=== PATIENT | male | born 1990 | race Caucasian/White ===

== ENCOUNTER → 2021-02-07 09:31 | Outpatient (CLI) | payer BC, SELFPAY ==
[2021-02-07 12:31] LABS: Anion Gap 7 (5-15); BUN 19 mg/dL (7-18); BUN/Creat Ratio 21.1 RATIO (10-20); Calcium,Total 9.1 mg/dL (8.5-10.1); Chloride 104 mmol/L (98-107); Cholesterol 175 mg/dL (200); EST Glomerular Filtration Rate 106 mL/min (>60); Est Glom Filt Rate - Afr Amer 129 mL/min (>60); Glucose 91 mg/dL (74-106); High Density Lipoprotein 39 mg/dL; Potassium 4.1 mmol/L (3.5-5.1); Sodium Level 134 mmol/L (136-145); Triglycerides 142 mg/dL; Very Low Density Lipoprotein 28 mg/dL (5-40)
== END ==
PROVIDERS: PCP Family Medicine; Referring Provider Family Medicine; Visit Provider Family Medicine
DX: Z13.1 Encounter for screening for diabetes mellitus (principal); Z13.220 Encounter for screening for lipoid disorders
CPT/HCPCS: 36415; 80048; 80061

== ENCOUNTER 2022-08-28 13:34 | Emergency (ER) | payer OTHER, BC, SELFPAY ==
[2022-08-28 13:35] VITALS: BP 123/99; PULSE 96; RESP 16; TEMP 36.6; O2SAT 96; BMI 33.5
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
[2022-08-28] MEDS: Amox/Clavulanate 875 MG Tablet PO (14:51)
== END 2022-08-28 15:03 | disposition home or self-care (01) ==
PROVIDERS: Emergency Provider Student in an Organized Health Care Education/Training Program; PCP Family Medicine; Visit Provider Student in an Organized Health Care Education/Training Program
DX: S00.511A Abrasion of lip, initial encounter (principal); S51.851A Open bite of right forearm, initial encounter; S00.93XA Contusion of unspecified part of head, initial encounter; S40.021A Contusion of right upper arm, initial encounter; Y04.8XXA Assault by other bodily force, initial encounter; Y99.0 Civilian activity done for income or pay
CPT/HCPCS: 99283

== ENCOUNTER → 2024-01-21 | Outpatient (CLI) | payer OTHER, SELFPAY ==
[2024-01-21 18:02] LABS: Absolute Lymphocyte Count 1.35 X10^3/uL (0.83-4.51); Absolute Neutrophil Count 5.6 X10^3/uL (2.0-7.7); Basophil# 0.02 X10^3/uL; Basophil% 0.3 % (0-1); Eosinophil# 0.08 X10^3/uL; Hematocrit 43.6 % (40-54); Hemoglobin 13.9 g/dL (13.0-16.5); Lymphocyte # 1.35 X10^3/ul (0.83-4.51); Lymphocyte % 17.7 % (19-41); Mean Corp Hgb Conc 31.9 g/dL (32-36); Mean Corpuscular Hgb 29.1 pg (27.0-32.0); Mean Corpuscular Volume 91.2 fL (80-94); Mean Platelet Vol. 9.4 fl (6.2-12.0); Monocyte# 0.58 X10^3/uL; Monocyte% 7.6 % (0-10); NRBC Flagged by Analyzer 0 % (0-5); Neutrophil # 5.57 X10^3/uL (2.7-7.7); Neutrophil % 73.1 % (47-70); Platelet Count 298 K/mm3 (150-450); RBC Distribution Width CV 12.6 % (11.6-14.6); RBC Distribution Width SD 42.2 fl (35.1-43.9); Red Blood Count 4.78 M/mm3 (4.6-6.2); White Blood Count 7.6 K/mm3 (4.4-11.0)
[2024-01-21 18:10] LABS: ALB/GLOB Ratio 0.8 RATIO (0.9-2.4); AST(SGOT) 30 U/L (15-37); Alanine Aminotransfer ALT/SGPT 127 U/L (16-61); Albumin, Serum 3.5 g/dL (3.2-5.0); Alkaline Phosphatase 123 U/L (45-117); Amylase 47 U/L (25-115); Anion Gap 5 (5-15); BUN 12 mg/dL (7-18); BUN/Creat Ratio 11.4 RATIO (10-20); Calcium,Total 9.2 mg/dL (8.5-10.1); Chloride 105 mmol/L (98-107); Creatinine, Serum 1.05 mg/dL (0.70-1.30); EST Glomerular Filtration Rate 87 mL/min (>60); Est Glom Filt Rate - Afr Amer 106 mL/min (>60); Globulin 4.4 g/dL (2.2-4.2); Glucose 97 mg/dL (74-106); Lipase 33 U/L (13-75); Potassium 3.8 mmol/L (3.5-5.1); Protein, Total 7.9 g/dL (6.4-8.2); Sodium Level 138 mmol/L (136-145)
== END | disposition home or self-care (01) ==
LOC: MFPLAB 16:29
PROVIDERS: PCP Family Medicine; Visit Provider Family Medicine
DX: R10.9 Unspecified abdominal pain (principal)
CPT/HCPCS: 36415; 80053; 82150; 83690; 85025

== ENCOUNTER → 2024-01-26 | Outpatient (CLI) | payer OTHER, SELFPAY ==
--- NOTE | 2024-01-26 08:38 | US_ITS ---
STUDY: ABDOMINAL ULTRASOUND - RIGHT UPPER QUADRANT REASON FOR VISIT: Male, 33 years old RUQ u/s -- EPIGASTRIC PAIN RADIATING TO RIGHT SHOULDER TECHNIQUE: Ultrasound evaluation of the right upper quadrant was performed with real-time and static rojas-scale imaging. TECHNICAL QUALITY: Adequate. COMPARISON: None. FINDINGS: Liver: The liver measures 17.1 cm. There is increased echogenicity consistent with fatty infiltration. The bile ducts are within normal limits. There is hepatic color flow. The direction of portal flow is hepatopetal. There is no demonstrated mass lesion. Gallbladder: Normal distended gallbladder. The gallbladder wall is mildly thickened and measures 3.2 mm. There is a positive sonographic Lynch''s sign. There is no pericholecystic fluid. There are multiple echogenic structures within the gallbladder, consistent with multiple gallstones. Common Bile Duct (C.B.D.): The common bile duct measures 4.2 mm. Pancreas: Normal size of the head, body and tail of the pancreas. There is normal echogenicity of the pancreas. There is no demonstrated pancreatic mass or cyst. Right Kidney: Normal size of the right kidney. The right kidney measures 11.4 cm x 6 cm x 6 cm. Normal renal cortex. The right cortex measures 1.8 cm. There is no demonstrated renal mass or cyst. There is no right hydronephrosis. US/Abdomen Limited IMPRESSION: Multiple gallstones. Mildly thickened gallbladder wall. Positive sonographic Lynch''s sign. Fatty infiltration of liver. Electronically Signed: Esteban Majano MD at 16:01 EDT ,
== END | disposition home or self-care (01) ==
LOC: US 08:33
PROVIDERS: PCP Family Medicine; Referring Provider Family Medicine; Visit Provider Family Medicine
DX: R10.9 Unspecified abdominal pain (principal)
CPT/HCPCS: 76705

== ENCOUNTER 2024-02-09 23:01 | Emergency (ER) | payer OTHER, SELFPAY ==
[2024-02-09 23:02] VITALS: BP 138/85; PULSE 63; RESP 16; TEMP 37.1; O2SAT 99; BMI 31.6
[2024-02-09 23:22] LABS: Absolute Lymphocyte Count 5.31 X10^3/uL (0.83-4.51); Absolute Neutrophil Count 5.7 X10^3/uL (2.0-7.7); Basophil# 0.03 X10^3/uL; Basophil% 0.2 % (0-1); Eosinophil# 0.28 X10^3/uL; Eosinophils% 2.3 % (0-5); Hematocrit 44.6 % (40-54); Hemoglobin 14.6 g/dL (13.0-16.5); Lymphocyte # 5.31 X10^3/ul (0.83-4.51); Lymphocyte % 43.5 % (19-41); Mean Corp Hgb Conc 32.7 g/dL (32-36); Mean Corpuscular Hgb 29.1 pg (27.0-32.0); Mean Corpuscular Volume 88.8 fL (80-94); Mean Platelet Vol. 8.8 fl (6.2-12.0); Monocyte# 0.88 X10^3/uL; Monocyte% 7.2 % (0-10); NRBC Flagged by Analyzer 0 % (0-5); Neutrophil # 5.67 X10^3/uL (2.7-7.7); Neutrophil % 46.6 % (47-70); POSITIVE DIFFERENTIAL YES; POSITIVE MORPHOLOGY YES; Platelet Count 322 K/mm3 (150-450); RBC Distribution Width CV 12.8 % (11.6-14.6); RBC Distribution Width SD 41.5 fl (35.1-43.9); Red Blood Count 5.02 M/mm3 (4.6-6.2); White Blood Count 12.2 K/mm3 (4.4-11.0)
[2024-02-09 23:27] LABS: Differential Indicated SCAN CRITERIA MET
[2024-02-09 23:45] LABS: ALB/GLOB Ratio 0.9 RATIO (0.9-2.4); AST(SGOT) 23 U/L (15-37); Alanine Aminotransfer ALT/SGPT 33 U/L (16-61); Albumin, Serum 3.7 g/dL (3.2-5.0); Alkaline Phosphatase 116 U/L (45-117); Anion Gap 7 (5-15); BUN 11 mg/dL (7-18); BUN/Creat Ratio 9.9 RATIO (10-20); Calcium,Total 9.1 mg/dL (8.5-10.1); Chloride 104 mmol/L (98-107); Creatinine, Serum 1.11 mg/dL (0.70-1.30); EST Glomerular Filtration Rate 82 mL/min (>60); Est Glom Filt Rate - Afr Amer 99 mL/min (>60); Estimated Creatinine Clearance 117.64 ml/min; Globulin 3.9 g/dL (2.2-4.2); Glucose 139 mg/dL (74-106); Potassium 3.5 mmol/L (3.5-5.1); Protein, Total 7.6 g/dL (6.4-8.2); Sodium Level 140 mmol/L (136-145)
[2024-02-10 00:03] LABS: Differential Comment SCANNED; Reactive Lymphocyte 3+
[2024-02-10 00:24] LABS: Lipase 39 U/L (13-75)
[2024-02-10] MEDS: 0.9% Normal Saline (1000mL) 1,000 ML 999 ML IV (00:25)
[2024-02-10] MEDS: HYDROmorphone 1 MG/ML Syringe IV (00:25)
[2024-02-10] MEDS: Ondansetron 4 MG/2 ML Vial IV (00:25)
--- NOTE | 2024-02-10 01:00 | EX.ED.DYSGE1 ---
HPI History of Present Illness Chief Complaint: Abd Pain Informant: patient and family Narrative Narrative: Patient is a 33-year-old male with past medical history of anxiety and recent diagnosis of cholelithiasis. He is scheduled to have a laparoscopic cholecystectomy in 2 days. He states his evening he ate a large amount of [employer] and then a little while later began with pain in the upper abdomen that felt similar nature to his previous bouts of a gallbladder attack. He states that he was concerned as he is scheduled for surgery and now is having increased pain that he may need to have surgery sooner and therefore comes in for evaluation. [facility] Medical History Impacted cerumen of both ears Anxiety Home Medications ?Medication ?Instructions ?Recorded ?Last Taken ?Type dextroamphetamine-amphetamine 20 20 mg PO DAILY 02/06/24 Unknown History mg tablet (Adderall) trazodone 100 mg tablet 100 mg PO QHS 02/09/24 Unknown History ondansetron 4 mg disintegrating 4 mg PO TID PRN nausea and 02/10/24 Unknown Rx tablet vomiting #21 tabs oxycodone-acetaminophen 5 mg-325 1 tab PO Q6H PRN pain 3 days #12 02/10/24 Unknown Rx mg tablet (Percocet) tabs Allergy/AdvReac Type Severity Reaction Status Date / Time No Known Allergies Allergy Verified 02/09/24 23:04 Social History (Updated 02/06/24 @ 13:38 by Randi Wilson LPN) Smoking Status: Never smoker alcohol intake: current substance use type: does not use ROS ROS ED Constitutional Constitutional ED: Denies chills or fever(s) ENT ENT ED: Denies sore throat Cardiovascular Cardiovascular: Denies chest pain Respiratory/Chest Respiratory/Chest: Denies cough or dyspnea Gastrointestinal Gastrointestinal: Reports abdominal pain and nausea; Denies diarrhea or vomiting Genitourinary Genitourinary ED: Denies dysuria or hematuria Musculoskeletal Musculoskeletal: Denies myalgias Integumentary Denies rash Neurologic Neurologic: Denies headache(s) Psychiatric Psychiatric: Reports anxiety Hematologic/Lymphatic Hematologic/Lymphatic: Denies easy bleeding or easy bruising EXAM Physical Exam Const Vital Signs: 02/09/24 23:02 02/10/24 01:02 02/10/24 01:10 Temperature 98.7 F 98.7 F Temperature Source Oral Pulse Rate 63 67 64 Respiratory Rate 16 18 18 Blood Pressure 138/85 H 123/77 H 123/77 H Blood Pressure Mean 102 92 92 Pulse Ox 99 100 100 Oxygen Delivery Method Room Air Room Air Positive well nourished, well developed and obese General Appearance ED: well developed; Negative for pallor Nutritional Appearance: obese HEENT Reports moist mucous membranes Eyes PERRL and EOMs intact bilaterally General Eye ED: Negative for scleral icterus Neck supple Resp normal respiratory effort and clear to auscultation bilaterally Cardio regular rate and regular rhythm Rate: other Other Details: Radial and carotid pulses are equal and symmetric GI non-distended and no masses GI Narrative: Abdomen is soft and nondistended with normal active bowel sounds. There is pain on palpation in the right upper quadrant and midepigastric region but greatest in the midepigastric region. No voluntary guarding or rigidity. No pulsatile mass or fluid wave. Negative Lynch sign. Auscultation: normoactive bowel sounds Palpation: soft Back/Spine no CVA tenderness Extremity normal to inspection Neuro oriented x3, CN's II-XII intact bilaterally and no sensory deficits noted Sensorium / Orientation: alert Motor Exam: strength 5/5 throughout Psych mental status grossly normal Skin no rashes or lesions noted General Skin Exam: Negative for jaundice or pallor MDM MDM MDM Narrative Medical decision making narrative: Patient arrived to the ER slightly hypertensive but otherwise with stable vitals. He has known gallbladder disease based on previous ultrasound. Moreover he ate food that would stimulate a gallbladder spasm which would account for his symptoms this evening. However as he does have the majority of his pain in the midepigastric region there is concern that he is now progressed to gallstone pancreatitis. There is also potential for acute cholecystitis. Therefore basic laboratory studies were ordered. Patient's white count is slightly elevated at 12.2 which is most likely stress response as he is afebrile and does not have a left shift I do not feel there is true infection. His lipase is also normal going against gallstone pancreatitis and his liver enzymes are actually improved from the previous testing on January 20 which would go against development of acute cholecystitis. After patient received IV hydration and IV pain medication he had resolution of his symptoms and his abdomen remains soft and nonsurgical. Therefore at this time as vitals are stable pain has resolved workup is negative I do not feel there is need for emergent surgical consultation and he can contact his surgeon as an outpatient basis prior to his scheduled event for History & Record Review Discussion w/independent historian: Patient and Family Lab Data Attestation: I reviewed the patient's lab results. Labs: Laboratory Results - last 24 hr 02/09/24 02/09/24 23:15 23:17 WBC 12.2 H RBC 5.02 Hgb 14.6 Hct 44.6 MCV 88.8 MCH 29.1 MCHC 32.7 RDW Std Deviation 41.5 RDW Coeff of Yoly 12.8 Plt Count 322 MPV 8.8 Immature Gran % (Auto) 0.200 Neut % (Auto) 46.6 L Lymph % (Auto) 43.5 H [place] % (Auto) 7.2 Eos % (Auto) 2.3 Baso % (Auto) 0.2 Absolute Neuts (auto) 5.7 Absolute Lymphs (auto) 5.31 H Nucleated RBC % 0 Differential Comment SCANNED Reactive Lymphocytes 3+ Sodium 140 Potassium 3.5 Chloride 104 Carbon Dioxide 29.0 Anion Gap 7 BUN 11 Creatinine 1.11 Estim Creat Clear Calc 117.64 Est GFR (MDRD) Af Amer 99 Est GFR (MDRD) Non-Af 82 BUN/Creatinine Ratio 9.9 L Glucose 139 H Calcium 9.1 Total Bilirubin 0.30 AST 23 ALT 33 Alkaline Phosphatase 116 Total Protein 7.6 Albumin 3.7 Globulin 3.9 Albumin/Globulin Ratio 0.9 Lipase 39 Discharge Plan Triage Chief Complaint: Abd Pain Other Complaint: Nausea/Vomiting ED Provider: Byron Morrison Dx/Rx/DC Orders Clinical Impression: Cholelithiasis, Biliary colic, Anxiety Instructions: ED Gallstones with Biliary Colic Prescriptions: New ondansetron 4 mg tablet,disintegrating 4 mg PO TID PRN (Reason: nausea and vomiting) Qty: 21 0RF oxycodone-acetaminophen [Percocet] 5-325 mg tablet 1 tab PO Q6H PRN (Reason: pain) 3 Days Qty: 12 0RF No Action dextroamphetamine-amphetamine [Adderall] 20 mg tablet 20 mg PO DAILY trazodone 100 mg tablet 100 mg PO QHS Primary Care Provider: Wilberto Watts Referrals: Lamine Davis MD [Med Staff - Active Staff] - Wilberto Watts MD [Primary Care Provider] - Activity Restrictions/Additional Instructions: Please eat a bland diet of smaller more frequent meals for the next few days to prevent any further recurrence of a gallbladder flareup. Notify your surgeon of the event that occurred this evening and see if they want to move your surgery up by the day. Return to the ER should you have any further concerns Print Language: Montenegrin Disposition Disposition: Home, Self Care Discharge Date/Time: 02/10/24 01:13
[2024-02-10 01:02] VITALS: BP 123/77; PULSE 67; RESP 18; O2SAT 100
[2024-02-10 01:10] VITALS: BP 123/77; PULSE 64; RESP 18; TEMP 37.1; O2SAT 100
== END 2024-02-10 01:13 | disposition home or self-care (01) ==
PROVIDERS: Emergency Provider Emergency Medicine; PCP Family Medicine; Visit Provider Emergency Medicine
DX: K80.70 Calculus of gallbladder and bile duct without cholecystitis without obstruction (principal); F41.9 Anxiety disorder, unspecified; Z79.899 Other long term (current) drug therapy
CPT/HCPCS: 80053; 83690; 85025; 99283; J7030; A4216; J2405

== ENCOUNTER 2024-02-11 01:10 | Inpatient (IN) | payer OTHER, SELFPAY ==
[2024-02-11] VITALS (15 sets, daily range): BP systolic 105–132; BP diastolic 59–81; PULSE 59–88; RESP 14–20; TEMP 36.5–37.5; O2SAT 93–100; BMI 31.3; BMI 31.1
--- NOTE | 2024-02-11 01:21 | ED.VIS.GI ---
HPI HPI - GI History of Present Illness Chief Complaint: Abd Pain Informant: patient and parent Abdominal Pain/Flank Pain Onset: Days Context: Gradual Onset Timing: Continuous Quality: Aching Location: Diffuse and Epigastric Current Severity: Mild Maximum Severity: Mild Worsened by: Nothing Relieved by: Nothing Nausea/Vomiting/Emesis GI Symptom: Positive for Nausea and Vomiting Severity: Mild Diarrhea/Melena/Hematochezia GI Symptom: Negative for Diarrhea, Melena or Hematochezia Associated Symptoms Associated Symptoms: Negative for Dysuria, Frequency or Hematuria Narrative Narrative: 33-year-old male diagnosed with gallstones and having a cholecystectomy done by Dr. Peterson Davis on . Patient states he has recurrent pain. Denies fever. He had 1 episode of nausea and vomiting. He did take a Percocet about half hour prior to arrival. He has never had any other abdominal surgery. Denies any diarrhea, melena or dysuria. Prior similar symptoms: Yes Recent Illness/Hospitalization: No PFSH PFSH Medical History Alcohol use History of steroid therapy Fatty liver Back pain Non-smoker Impacted cerumen of both ears Anxiety Home Medications ?Medication ?Instructions ?Recorded ?Last Taken ?Type dextroamphetamine-amphetamine 20 20 mg PO DAILY 02/06/24 Unknown History mg tablet (Adderall) trazodone 100 mg tablet 100 mg PO QHS 02/09/24 Unknown History ondansetron 4 mg disintegrating 4 mg PO TID PRN nausea and 02/10/24 Unknown Rx tablet vomiting #21 tabs oxycodone-acetaminophen 5 mg-325 1 tab PO Q6H PRN pain 3 days #12 02/10/24 Unknown Rx mg tablet (Percocet) tabs Allergy/AdvReac Type Severity Reaction Status Date / Time No Known Allergies Allergy Verified 02/11/24 01:10 Surgical History Hx of wisdom tooth extraction Social History Smoking Status: Never smoker alcohol intake: current substance use type: does not use ROS ROS ED ROS Narrative Abdominal pain. Nausea and vomiting. Constitutional Constitutional ED: Denies chills or fever(s) ENT ENT ED: Denies ear pain Cardiovascular Cardiovascular: Denies chest pain Respiratory/Chest Respiratory/Chest: Denies cough or dyspnea Gastrointestinal Gastrointestinal: Reports abdominal pain, nausea and vomiting Genitourinary Genitourinary ED: Denies dysuria or hematuria Musculoskeletal Musculoskeletal: Denies arthralgias Integumentary Denies abscess Neurologic Neurologic: Denies headache(s) Endocrine Endocrinology: Denies polydipsia Hematologic/Lymphatic Hematologic/Lymphatic: Denies easy bleeding Allergic/Immunologic Allergic/Immunologic ED: Denies mouth swelling or tongue swelling EXAM Physical Exam Narrative Exam Narrative: Well-appearing 33-year-old male. Vital signs stable afebrile. Family at bedside. He does not look septic toxic or in distress. H EENT exam unremarkable. Moist remembrance. Neck nontender. Lungs clear to auscultation bilaterally. Heart regular rhythm rate about 65 no murmur. Chest wall ribs nontender. Abdomen soft nondistended normal bowel sounds without peritoneal signs. Diffusely tender more so in epigastric region. No specific Lynch sign. No McBurney's point tenderness. No hernia or mass. No obstruction. Back nontender. Moving all 4 extremities. Nontender no edema. He is awake and alert. Const Vital Signs: 02/11/24 01:11 02/11/24 02:19 02/11/24 03:09 Temperature 98.2 F 98.9 F Temperature Source Temporal Pulse Rate 66 78 88 Respiratory Rate 18 16 16 Blood Pressure 124/70 H 119/73 110/70 Blood Pressure Mean 88 88 83 Pulse Ox 94 98 100 Oxygen Delivery Method Room Air Room Air Positive well nourished and well developed; Negative for cachectic, contractures or unkempt General Appearance ED: well developed and NAD; Negative for unkempt, cachectic, contractures or pallor Nutritional Appearance: Negative for cachectic HEENT Reports moist mucous membranes normocephalic and atraumatic; Negative for trauma or tenderness Eyes PERRL and EOMs intact bilaterally General Eye ED: Negative for pale conjunctiva or scleral icterus Neck no lymphadenopathy, supple and no JVD General: Negative for tenderness Carotids: Negative for other Lymph Lymphatic: Negative for other Resp normal respiratory effort and clear to auscultation bilaterally Effort and Inspection: Negative for respiratory distress Auscultation: Negative for rales, rhonchi, wheezes or diminished lung sounds Cardio regular rate, regular rhythm, S1 normal heart sound, S2 normal heart sound and no murmurs Rate: Negative for bradycardia or tachycardic Rhythm: Negative for abnormal rhythm GI non-distended and no masses; Negative for non-tender Inspection: Negative for abdominal distention Auscultation: normoactive bowel sounds Palpation: soft and tender; Negative for guarding, rigid, hepatomegaly, splenomegaly, hernia, mass or pulsatile mass Back/Spine no CVA tenderness General Back: Negative for CVA tenderness Cervical Spine: Negative for cervical spine tenderness Thoracic Spine / Upper Back: Negative for thoracic spinal tenderness Lumbar Spine / Lower Back: Negative for lumbar spinal tenderness Coccyx: Negative for other Extremity full ROM General Extremety ED: Negative for edema or tenderness General Extremity: Negative for edema Neuro CN's II-XII intact bilaterally and moves all extremities Sensorium / Orientation: oriented to person, oriented to place and oriented to time; Negative for orientation impaired, confused, lethargic or stuporous Motor Exam: strength 5/5 throughout Psych mental status grossly normal and thought process normal Appearance: Negative for unkempt Attitude: No agitated Mood & Affect: Negative for depressed Skin no wounds General Skin Exam: Negative for jaundice or pallor Lesions: no lesions Rashes: no rashes Trauma: Negative for abrasion Nails: Negative for discolored MDM MDM MDM Narrative Medical decision making narrative: 33-year-old male with a plan abdominal pain with a history of gallstones. He took a Percocet prior to arrival. He was offered but did not want a thing for pain or nausea currently. He was instructed that if he needs something just ask. Screening labs to be obtained. He had an ultrasound done about 2+ weeks ago. It did show gallstones. I do not think he needs imaging currently unless his labs are significantly off. He is scheduled to have his gallbladder out on less than 36 hours from now. Patient doing well at 3 AM pain is much better after the IV pain medication. He is resting comfortably. I spoke to general surgery on-call Dr. Arias, we discussed the case. She requested the patient be admitted to the hospitalist. I have spoken with the hospitalist who admit the patient. But he did want me to obtain a CT abdomen and pelvis for him. He will consult GI for possible ERCP as needed. History & Record Review Discussion w/independent historian: Patient and Family Additional record(s) reviewed:: Prior inpatient record, Prior outpatient record, Prior ED visit and Prior labs Lab Data Attestation: I reviewed the patient's lab results. Lab results narrative: CBC normal. White count 8.6. H&H 14 and 44. Platelets 291. Chemistries unremarkable gap 7. Normal BUN and creatinine. Glucose 116. Liver enzymes are elevated with a total bilirubin 2.2. AST of 285, ALT 576 and alk phos of 152. Lipase is greater than 5000 consistent with gallstone pancreatitis. Labs: Laboratory Results - last 24 hr 02/11/24 01:20 WBC 8.6 RBC 4.99 Hgb 14.6 Hct 44.9 MCV 90.0 MCH 29.3 MCHC 32.5 RDW Std Deviation 42.8 RDW Coeff of Yoly 13.1 Plt Count 291 MPV 9.2 Immature Gran % (Auto) 0.200 Neut % (Auto) 65.0 Lymph % (Auto) 25.2 [place] % (Auto) 7.3 Eos % (Auto) 2.0 Baso % (Auto) 0.3 Absolute Neuts (auto) 5.6 Absolute Lymphs (auto) 2.17 Nucleated RBC % 0 Sodium 142 Potassium 4.1 Chloride 108 H Carbon Dioxide 27.0 Anion Gap 7 BUN 7 Creatinine 1.14 Estim Creat Clear Calc 114.07 Est GFR (MDRD) Af Amer 96 Est GFR (MDRD) Non-Af 79 BUN/Creatinine Ratio 6.1 L Glucose 116 H Calcium 8.8 Total Bilirubin 2.20 H AST 285 H ALT 576 H Alkaline Phosphatase 152 H Total Protein 7.1 Albumin 3.5 Globulin 3.6 Albumin/Globulin Ratio 1.0 Lipase > 5000 H Discharge Plan Triage Chief Complaint: Abd Pain ED Provider: Alexander Toro Dx/Rx/DC Orders Clinical Impression: Gallstones, Biliary colic, Abdominal pain, Acute gallstone pancreatitis Primary Care Provider: Wilberto Watts Disposition Disposition: Acute Care [facility]
[2024-02-11 01:38] LABS: Absolute Lymphocyte Count 2.17 X10^3/uL (0.83-4.51); Absolute Neutrophil Count 5.6 X10^3/uL (2.0-7.7); Basophil# 0.03 X10^3/uL; Basophil% 0.3 % (0-1); Eosinophil# 0.17 X10^3/uL; Hematocrit 44.9 % (40-54); Hemoglobin 14.6 g/dL (13.0-16.5); Lymphocyte # 2.17 X10^3/ul (0.83-4.51); Lymphocyte % 25.2 % (19-41); Mean Corp Hgb Conc 32.5 g/dL (32-36); Mean Corpuscular Hgb 29.3 pg (27.0-32.0); Mean Platelet Vol. 9.2 fl (6.2-12.0); Monocyte# 0.63 X10^3/uL; Monocyte% 7.3 % (0-10); NRBC Flagged by Analyzer 0 % (0-5); Neutrophil # 5.58 X10^3/uL (2.7-7.7); Platelet Count 291 K/mm3 (150-450); RBC Distribution Width CV 13.1 % (11.6-14.6); RBC Distribution Width SD 42.8 fl (35.1-43.9); Red Blood Count 4.99 M/mm3 (4.6-6.2); White Blood Count 8.6 K/mm3 (4.4-11.0)
[2024-02-11] MEDS: Ondansetron 4 MG/2 ML Vial IV ×2 (02:17→18:03)
[2024-02-11] MEDS: Ketorolac 30 MG/ML Syringe IV (02:17)
[2024-02-11] MEDS: morphine 8 MG/ML Syringe 6 MG IV (02:17)
[2024-02-11 02:35] LABS: AST(SGOT) 285 U/L (15-37); Alanine Aminotransfer ALT/SGPT 576 U/L (16-61); Albumin, Serum 3.5 g/dL (3.2-5.0); Alkaline Phosphatase 152 U/L (45-117); Anion Gap 7 (5-15); BUN 7 mg/dL (7-18); BUN/Creat Ratio 6.1 RATIO (10-20); Calcium,Total 8.8 mg/dL (8.5-10.1); Chloride 108 mmol/L (98-107); Creatinine, Serum 1.14 mg/dL (0.70-1.30); EST Glomerular Filtration Rate 79 mL/min (>60); Est Glom Filt Rate - Afr Amer 96 mL/min (>60); Estimated Creatinine Clearance 114.07 ml/min; Globulin 3.6 g/dL (2.2-4.2); Glucose 116 mg/dL (74-106); Lipase > 5000 U/L (13-75); Potassium 4.1 mmol/L (3.5-5.1); Protein, Total 7.1 g/dL (6.4-8.2); Sodium Level 142 mmol/L (136-145)
--- NOTE | 2024-02-11 04:17 | HP.PCM.HOS_ITS ---
[facility] - General General Date of Admission: 02/11/24 Date of Service: 02/11/24 Chief Complaint: Abdominal Pain with Nausea and Vomiting. HPI Narrative FADY HAWLEY, is a 33 M with a past medical history of recently diagnosed acute cholecystitis with multiple gallstones on recent ultrasound followed by Dr. Davis with plans made for laparoscopic cholecystectomy that was to be done on February 12, 2024 who presents to [facility] ER complaining of abdominal pain. Mr. Hawley reports his acute symptoms began approximately 1-2 days prior to admission with the gradual-onset of progressively worsening abdominal pain that was aching, diffuse and epigastric, mild and was not made better or worse by anything. He also admits to associated nausea with one episode of bilious emesis. He did take a Percocet about one half hour prior to arrival but when his symptoms were not controlled he decided to come in for further evaluation and treatment. He denies associated fever, chills, diarrhea, constipation, chest pain or SOB. In the ER he was noted to have laboratory evidence of hyperbilirubinemia of 2.2 mg/dL, with AST 285 U/L, ALT 576 U/L and Alkaline Phosphatase of 152 U/L present on admission complicated by acute gallstone pancreatitis confirmed by elevated serum lipase of >5K U/L with the general surgeon on-call recommending to the ER physician that this patient be admitted to the hospitalist service so consultation with Dr. Garcia of gastroenterology can be obtained for ERCP in the AM prior to consulting them for impending laparoscopic cholecystectomy. He was then admitted to the general medical floor for ongoing care for a stay that that is expected to extend beyond 2 midnights. [facility] Medical History Alcohol use History of steroid therapy Fatty liver Back pain Non-smoker Impacted cerumen of both ears Anxiety Home Medications ?Medication ?Instructions ?Recorded ?Last Taken ?Type dextroamphetamine-amphetamine 20 20 mg PO DAILY 02/06/24 Unknown History mg tablet (Adderall) trazodone 100 mg tablet 100 mg PO QHS 02/09/24 Unknown History ondansetron 4 mg disintegrating 4 mg PO TID PRN nausea and 02/10/24 Unknown Rx tablet vomiting #21 tabs oxycodone-acetaminophen 5 mg-325 1 tab PO Q6H PRN pain 3 days #12 02/10/24 Unknown Rx mg tablet (Percocet) tabs Allergy/AdvReac Type Severity Reaction Status Date / Time No Known Allergies Allergy Verified 02/11/24 01:10 Surgical History Hx of wisdom tooth extraction Social History Smoking Status: Never smoker alcohol intake: current substance use type: does not use ROS ROS Narrative Review of Systems: Constitutional: Patient denies fever or chills. Eyes: Patient denies changes in vision or discharge from eyes. ENT: Patient denies runny nose, sore throat or ear pain. CV: Patient denies chest pain, palpitations or heart racing. Resp: Patient denies SOB or cough. GI: Patient admits to abdominal pain and nausea with one episode of bilious emesis. He denies diarrhea or constipation. : Patient denies dysuria, hematuria or urinary hesitancy. MSK: Patient denies arthralgias and myalgias. Skin: Patient denies rash, abscess or jaundice. Psych: Patient denies symptoms of uncontrolled depression or anxiety. Neuro: Patient denies headache, paresthesias or focal neurologic deficits. Hematology: Patient denies easy bleeding or easy bruisability. Endocrinology: Patient denies polyuria, polydipsia or polyphagia. 14 point ROS otherwise negative except for positives noted above. Vital Signs Vital Signs Vital Signs: 02/11/24 01:11 02/11/24 02:19 02/11/24 03:09 Temperature 98.2 F 98.9 F Temperature Source Temporal Pulse Rate 66 78 88 Respiratory Rate 18 16 16 Blood Pressure 124/70 H 119/73 110/70 Blood Pressure Mean 88 88 83 Pulse Ox 94 98 100 Oxygen Delivery Method Room Air Room Air Weight Weight: 224 lb 6.889 oz Body Mass Index (BMI) 31.3 Physical Exam Const alert, oriented x3, no apparent distress and average body habitus General Appearance: cooperative HEENT normocephalic, head/scalp atraumatic, hearing grossly normal bilaterally and moist oral mucous membranes Eyes PERRL and EOMs intact bilaterally Neck no lymphadenopathy and supple Resp normal respiratory effort, no retractions, no use of accessory muscles and clear to auscultation bilaterally Cardio regular rate and regular rhythm GI normal to inspection, nondistended, normoactive bowel sounds, soft to palpation and non-distended GI Narrative: Positive TTP in epigastrium. Extremity normal to inspection, full ROM and no clubbing, cyanosis or edema Skin Skin Narrative: Patient has no evidence of rash or abscess. Neuro oriented x3, CN's II-XII intact bilaterally, moves all extremities and no focal motor deficits Sensorium / Orientation: awake, alert, oriented to person, oriented to place and oriented to time Speech: speech normal Psych affect normal Results Medical Records Data Attestation: I reviewed the patient's medical records Lab / Micro Data Attestation: I reviewed the patient's lab results. 02/11/24 01:20 02/11/24 01:20 Labs: Laboratory Results - last 24 hr 02/11/24 01:20: WBC 8.6, RBC 4.99, Hgb 14.6, Hct 44.9, MCV 90.0, MCH 29.3, MCHC 32.5, RDW Std Deviation 42.8, RDW Coeff of Yoly 13.1, Plt Count 291, MPV 9.2, Immature Gran % (Auto) 0.200, Neut % (Auto) 65.0, Lymph % (Auto) 25.2, [place] % (Auto) 7.3, Eos % (Auto) 2.0, Baso % (Auto) 0.3, Absolute Neuts (auto) 5.6, Absolute Lymphs (auto) 2.17, Nucleated RBC % 0, Sodium 142, Potassium 4.1, C hloride 108 H, Carbon Dioxide 27.0, Anion Gap 7, BUN 7, Creatinine 1.14, Estim Creat Clear Calc 114.07, Est GFR (MDRD) Af Amer 96, Est GFR (MDRD) Non-Af 79, B UN/Creatinine Ratio 6.1 L, Glucose 116 H, Calcium 8.8, Total Bilirubin 2.20 H, A ST 285 H, ALT 576 H, Alkaline Phosphatase 152 H, Total Protein 7.1, Albumin 3.5, Globulin 3.6, Albumin/Globulin Ratio 1.0, Lipase > 5000 H Imaging [facility] Imaging Services [address], [place] [id number] Abdomen/Pelvis W IV Cont ONLY MR#: [id number] Acct: [id number] Name: FADY HAWLEY Rep #: [id number] : 1990 M 33 From: Bhavesh Barillas MD PCP: Dr. Wilberto Watts MD Status: ADM IN Study: Abdomen/Pelvis W IV Cont ONLY Date of Exam: 02/11/24 Exam# [id number] Ordering Dr: Alexander Toro MD STUDY: CT ABDOMEN AND PELVIS WITH CONTRAST - URINARY TRACT REASON FOR EXAM: Male, 33 years old. gallstome pancreatitis RADIATION DOSAGE (If Supplied By Facility): CTDIvol = ( 17.63 ) mGy, DLP = ( 1180.63 ) mGycm TECHNIQUE: IV 100mL Isovue-300 was administered. Transaxial images were obtained from the dome of the diaphragm to the symphysis pubis in the arterial, nephrographic and excretory phases. Multiplanar coronal and sagittal images were reformatted. The protocol utilizes one or more of the following dose reduction techniques: automated exposure control, adjustment of mA and/or kV according to patient size,and/or use of iterative reconstruction technique. COMPARISON: FINDINGS: The visualized lung bases are unremarkable. The visualized portions of the heart are within normal limits. Normal liver. There are multiple gallstones. Normal spleen. There is diffuse enlargement of the pancreas with fito-pancreatic edema consistent with acute pancreatitis. Normal bilateral adrenal glands. Normal visualized stomach. Normal small intestine. Normal colon. The appendix is visualized and appears normal. Normal abdominal aorta. No retroperitoneal adenopathy. Normal right kidney. Normal left kidney. Normal urinary bladder. Normal abdominal wall. Normal osseous structures. CT/Abdomen/Pelvis W IV Cont ONLY IMPRESSION: There is diffuse enlargement of the pancreas with fito-pancreatic edema consistent with acute pancreatitis. Cholelithiasis. Electronically Signed: Bhavesh Barillas MD at 4:51 EDT , CC: Dr. Wilberto Watts MD; Dr. Alexander oTro MD ~ Head Mechanic: Signed Assessment & Plan Assessment/Plan (1) Acute gallstone pancreatitis: (2) Acute cholecystitis due to biliary calculus: (3) Abdominal pain: QUALIFIERS: Abdominal location: epigastric Qualified Code(s): R 10.13 - Epigastric pain (4) Nausea and vomiting: QUALIFIERS: Vomiting type: unspecified Qualified Code(s): R11.2 - Nausea with vomiting, unspecified (5) Anxiety: PLAN: Plan 1. Acute Gallstone Pancreatitis with known gallstones on recent GB US and serum lipase of >5K - Admit to general medical floor. Start empiric IV Zosyn until ERCP can be done and gallbladder can be removed. Give IV Morphine prn for severe (level 6-10/10) pain. Give IV Zofran prn for nausea and vomiting. Finally, we will consult Dr. Garcia of gastroenterology to see this patient on- rounds in the AM for further recommendations regarding ERCP with help appreciated in advance. 2. Cholelithiasis with Biliary Colic and laboratory evidence of hyperbilirubinemia of 2.2 mg/dL, with AST 285 U/L, ALT 576 U/L and Alkaline Phosphatase of 152 U/L present on admission complicating #1 - General surgery to see this patient on-rounds in the AM for further recommendations regarding previously scheduled semi-elective cholecystectomy with help appreciated in advance. Check CMP daily to follow trend. 3. History of Anxiety - Stable. 4. DVT prophylaxis - SCD's only with impending ERCP and laparoscopic cholecystectomy. Total time: Approximately 55 minutes. Charges/Coding Visit Charges Inpatient E&M: 58040 Init Hosp L2
[2024-02-11 06:06] LABS: Phosphorus 3.7 mg/dL (2.5-4.9)
[2024-02-11] MEDS: Piperacil/Tazobactam 3.375 GM in 0.9% Normal Saline (50mL MB+) 50 ML IV ×3 (06:16→22:19)
[2024-02-11] MEDS: 0.9% Normal Saline (1000mL) 1,000 ML 125 ML IV ×2 (06:16→13:13)
[2024-02-11] MEDS: Morphine 2 MG/ML Syringe IV ×2 (07:31→12:02)
[2024-02-11] MEDS: 0.9% Saline Lock 10 ML Syringe IV ×4 (07:37→18:04)
[2024-02-11] MEDS: Ketorolac 15 MG/ML Vial IV ×2 (08:41→18:03)
--- NOTE | 2024-02-11 09:11 | CON.PCM.SX_ITS ---
Assessment & Plan Assessment/Plan (1) Acute cholecystitis due to biliary calculus: (2) Acute gallstone pancreatitis: PLAN: Plan I have been consulted in conjunction with Dr. Ohara who is covering for Dr. Davis. She will independently evaluate this patient. Patient is now presenting with acute gallstone pancreatitis. Dr. Garcia has been consulted and will perform an ERCP with possible stent placement today. Dr. Davis will plan to perform a laparoscopic cholecystectomy with intraoperative cholangiograms tomorrow. Procedure details, risks and benefits have been reviewed. Will recheck patient's labs in the morning especially his lipase. Patient and his mother have had the opportunity to ask and have questions answered. Patient verbally understands and agrees with the plan. Plan for NPO after midnight. Patient is on Zosyn and will remain on Zosyn for the surgery. Thank you for allowing us to participate in this patient's care. HPI Consult Data Date of Consult: 02/11/24 HPI Narrative Reason for Consultation: Gallstone pancreatitis HPI Narrative: FADY HAWLEY, is a 33 M who presents with worsening right upper quadrant pain, nausea, vomiting. Patient was evaluated last Friday in the office with Dr. Davis in regards to removal of his gallbladder. Patient was scheduled in the office for cholecystectomy this with Dr. Davis. Patient states he went to the ED on 02/08 after eating a large amount of [employer] and developing abdominal pain. Patient states he was provided anti-nausea medicine and then pain medication from the ED and was discharged to home. He had contacted our office on Friday and updated our office about his ED trip. He was recommended to go to clear liquids until . Patient notes last night the pain intensified and he presented to the ED. Patient was found to have epigastric pain and left upper quadrant pain as well. Patient's blood work is remarkable for elevated liver enzymes and elevated lipase level. CT scan of the ab/pel demonstrated diffuse enlargement of the pancreas with per-pancreatic edema consistent with acute pancreatitis. Cholelithiasis. Patient's previous history per Dr. Davis: Patient is a 33-year-old male here with gallstones. Patient was seen in his PCPs office and an ultrasound was ordered which showed thickened gallbladder wall with multiple gallstones. The patient reports that since then his pain has resolved and he has been very careful about his diet and currently is pain-free. PFSH Medical History Alcohol use History of steroid therapy Fatty liver Back pain Non-smoker Impacted cerumen of both ears Anxiety Home Medications ?Medication ?Instructions ?Recorded ?Last Taken ?Type dextroamphetamine-amphetamine 20 20 mg PO DAILY 02/06/24 Unknown History mg tablet (Adderall) trazodone 100 mg tablet 100 mg PO QHS 02/09/24 Unknown History ondansetron 4 mg disintegrating 4 mg PO TID PRN nausea and 02/10/24 Unknown Rx tablet vomiting #21 tabs oxycodone-acetaminophen 5 mg-325 1 tab PO Q6H PRN pain 3 days #12 02/10/24 Unknown Rx mg tablet (Percocet) tabs Allergy/AdvReac Type Severity Reaction Status Date / Time No Known Allergies Allergy Verified 02/11/24 01:10 Surgical History Hx of wisdom tooth extraction Social History Smoking Status: Never smoker alcohol intake: current substance use type: does not use ROS Constitutional Constitutional: Reports systems reviewed and no addt'l complaints, except as documented Eyes Eyes: Reports systems reviewed and no addt'l complaints, except as documented ENT HEENT: Reports systems reviewed and no addt'l complaints, except as documented Cardiovascular Cardiovascular: Reports systems reviewed and no addt'l complaints, except as documented Respiratory/Chest Respiratory/Chest: Reports systems reviewed and no addt'l complaints, except as documented Gastrointestinal Gastrointestinal: Reports systems reviewed and no addt'l complaints, except as documented Genitourinary Genitourinary: Reports systems reviewed and no addt'l complaints, except as documented Musculoskeletal Musculoskeletal: Reports systems reviewed and no addt'l complaints, except as documented Integumentary Integumentary: Reports systems reviewed and no addt'l complaints, except as documented Neurologic Neurologic: Reports systems reviewed and no addt'l complaints, except as documented Psychiatric Psychiatric: Reports systems reviewed and no addt'l complaints, except as documented Endocrine Endocrinology: Reports systems reviewed and no addt'l complaints, except as documented Hematologic/Lymphatic Hematologic/Lymphatic: Reports systems reviewed and no addt'l complaints, except as documented Allergic/Immunologic Allergic/Immunologic: Reports systems reviewed and no addt'l complaints, except as documented Physical Exam Const alert, oriented x3 and no apparent distress HEENT normocephalic and head/scalp atraumatic Eyes PERRL Neck full ROM Lymph Lymphatic: no lymphadenopathy noted Resp normal respiratory effort and clear to auscultation bilaterally Cardio regular rate and regular rhythm GI GI Narrative: Abdomen- soft, tenderness LUQ, epigastric and RUQ with guarding. Hypoactive bowel sounds. no CVA tenderness Back/Spine no CVA tenderness Extremity normal to inspection Skin no rashes or lesions noted Neuro no focal motor deficits and no sensory deficits noted Psych mental status grossly normal Lab / Micro Data 02/11/24 01:20 02/11/24 01:20 Labs: Laboratory Results - last 24 hr 02/11/24 01:20: WBC 8.6, RBC 4.99, Hgb 14.6, Hct 44.9, MCV 90.0, MCH 29.3, MCHC 32.5, RDW Std Deviation 42.8, RDW Coeff of Yoly 13.1, Plt Count 291, MPV 9.2, Immature Gran % (Auto) 0.200, Neut % (Auto) 65.0, Lymph % (Auto) 25.2, [place] % (Auto) 7.3, Eos % (Auto) 2.0, Baso % (Auto) 0.3, Absolute Neuts (auto) 5.6, Absolute Lymphs (auto) 2.17, Nucleated RBC % 0, Sodium 142, Potassium 4.1, C hloride 108 H, Carbon Dioxide 27.0, Anion Gap 7, BUN 7, Creatinine 1.14, Estim Creat Clear Calc 114.07, Est GFR (MDRD) Af Amer 96, Est GFR (MDRD) Non-Af 79, B UN/Creatinine Ratio 6.1 L, Glucose 116 H, Calcium 8.8, Phosphorus 3.7, Magnesium 2.0, Total Bilirubin 2.20 H, AST 285 H, ALT 576 H, Alkaline Phosphatase 152 H, Total Protein 7.1, Albumin 3.5, Globulin 3.6, Albumin/Globulin Ratio 1.0, Lipase > 5000 H, TSH 1.190 Imaging Radiology Impression Abdomen/Pelvis CT 02/11/24 04:19 IMPRESSION: There is diffuse enlargement of the pancreas with fito-pancreatic edema consistent with acute pancreatitis. Cholelithiasis. Electronically Signed: Bhavesh Barillas MD at 4:51 EDT , Charges/Coding Visit Charges Office Visits / Consults: [id number] IP Consult L3
--- NOTE | 2024-02-11 09:37 | CASEMGMT ---
SERGIO WADE Assessment: Face to Face with pt for initial transition planning/care coordination assessment. SERGIO WADE introduced self and role at [facility], pt voices understanding and consents to assessment. Pt is A&O x4 and answers all questions appropriately at this time. Pt lying in bed in no distress with mother at bedside. Pt agreeable to assessment with mother present. Care providers, pharmacy, and demographics verified/updated. Admitting Dx: acute cholecystitis with gallstone pancreatitis Strata Score: 1 PCP:Stefanie Specialists:SRINATH Davis; Geremias Pennington at [facility], psychiatrist Preferred Pharmacy: [facility] Insurance: [facility] Prescription Benefit: yes LNOK: Mary Jane Dasilva, mother Living Arrangements: Pt lives with mother in a 2 story home with 15 steps to enter with a rail. Pt states he lives in the upstairs and his neighbor lives in the downstairs. Pt reports he is I in ADLs and denies concerns at home. Transportation: Pt drives self and denies concerns with transportation. DME:Denies HHC/SNF: Denies Pt states no concerns with going home at time of dc. Pt states no further concerns/needs. CM to follow. Advised pt to ask CM if any further question/concerns/needs arise, voices understanding. Pt Goal: Home Plan: Home, will stay with his mother for a couple days post dc. Blair HILL CM
[2024-02-11] MEDS: Pantoprazole Sodium 40 MG in 0.9% Normal Saline (100mL MB+) 100 ML 330 MG IV (10:54)
--- NOTE | 2024-02-11 14:48 | EKG12_ITS ---
Test Reason : preop Blood Pressure : / mmHG Vent. Rate : 070 BPM Atrial Rate : 070 BPM P-R Int : 180 ms QRS Dur : 098 ms QT Int : 378 ms P-R-T Axes : -08 010 011 degrees QTc Int : 408 ms Normal sinus rhythm Incomplete right bundle branch block Borderline ECG No previous ECGs available Confirmed by Tigre Aguayo ([id number]), food editor ESTEE WELLS ([id number]) on 02/13/2024 6:38:19 AM Referred By: Dorothy Confirmed By:Tigre Aguyao
--- NOTE | 2024-02-11 15:14 | PCM.PRE.AN2 ---
ASA Classification* ASA Classification ASA Classification: 2 Assessment & Plan Anesthesia* Anesthesia Assessment Anesthesia Assessment: Discussed sedation and/or anesthesia options, risks, benefits, and alternatives with patient/parents/legal guardian/POA. Questions invited. The patient/parents/legal guardian/POA seems to understand and agrees to proceed with anesthesia plan. Reviewed the physical assessment, medical history, allergy history and patient home medications list prior to surgery/procedure/anesthetic and documented any changes. Performed airway and anesthesia risk assessments. Anesthesia Type Anesthesia Type: General History Source History Obtained from:: Patient and Chart Anesthesia Focused Assessment* Temperature: 98.1 F Pulse Rate: 64 Blood Pressure: 111/71 Respiratory Rate: 16 Pulse Ox: 97 Oxygen Delivery Method: Room Air Airway Assessment Mouth opens: >3 cm Mallampati Score: III Teeth Condition: Intact Neck Range of motion (ROM): Full ROM Focused Labs Anesthesia Preop lab: CBC WBC 8.6 K/mm3 (4.4-11.0) 02/11/24 01:20 RBC 4.99 M/mm3 (4.6-6.2) 02/11/24 01:20 Hgb 14.6 g/dL (13.0-16.5) 02/11/24 01:20 Hct 44.9 % (40-54) 02/11/24 01:20 Plt Count 291 K/mm3 (150-450) 02/11/24 01:20 CHEMISTRY Potassium 4.1 mmol/L (3.5-5.1) 02/11/24 01:20 Sodium 142 mmol/L (136-145) 02/11/24 01:20 Magnesium 2.0 mg/dL (1.6-2.6) 02/11/24 01:20 Phosphorus 3.7 mg/dL (2.5-4.9) 02/11/24 01:20 BUN 7 mg/dL (7-18) 02/11/24 01:20 Creatinine 1.14 mg/dL (0.70-1.30) 02/11/24 01:20 Glucose 116 mg/dL (74-106) H 02/11/24 01:20 TSH 1.190 uIU/mL (0.358-3.740) 02/11/24 01:20 COAG Pre-Assessment Diagnosis/Proposed Procedure Planned Operative Procedure(s): Endoscopic endoscopic retrograde cholangiopancreatography Anesthesia History Anesthesia History - chicken vaccinator: Anesthesia History - chicken vaccinator Hx Hospitalization No 02/10/24 13:50 Any Problems With Anesthesia No 02/11/24 05:59 Cholinesterase deficiency No 02/11/24 05:59 You/Your Family Experience No 02/11/24 05:59 fever (hyperthermia) with Relationship Recent Exposure to Contagious No 02/11/24 05:59 Disease Does patient have nerve No 02/11/24 05:59 stimulator Patient instructed to have No 02/11/24 05:59 device shut off --Does patient have Pacemaker No 02/11/24 14:41 or ICD? When Was Last Pacemaker Check QUESTION #4 FULL TEXT: You/Your Family Experience fever (hyperthermia) with Anesthesia Last Oral Intake Last Oral intake: Last Oral Intake NPO since Meds taken in AM with sips of water? Meds patient instructed to take am of surgery Any additional information?: Yes NPO since: 01:00 PONV PONV - chicken vaccinator: PONV - chicken vaccinator Female HX of Motion Sickness HX of N/V After Surgery Non-Smoker Duration of Surgery greater than 60 minutes Number of Risk Factors PONV Score Height & Weight Height & Weight: Anesthesia: Height & Weight Height 5 ft 10.87 in 02/11/24 14:41 Weight: 101 kg 02/11/24 14:41 Body Mass Index (BMI) 31.1 02/11/24 14:41 Respiratory Assessment Respiratory Assessment - chicken vaccinator: Respiratory Tract Infection Hx - chicken vaccinator Hx Respiratory Tract Infection No 02/11/24 05:59 STOP Sleep Apnea STOP Sleep Apnea - chicken vaccinator: STOP Sleep Apnea - chicken vaccinator Hx Hypertension No 02/11/24 05:51 Hx Sleep Apnea No 02/11/24 05:51 CPAP BIPAP Do you snore loudly (louder No 02/11/24 05:51 than talking or can be heard Do you often feel tired/ No 02/11/24 05:51 fatigued/ sleepy during daytime? Has anyone observed you stop No 02/11/24 05:51 breathing during sleep? STOP Results Negative 02/11/24 05:51 QUESTION #5 FULL TEXT : Do you snore loudly (louder than talking or can be heard through closed doors)? Tobacco Use History Tobacco Use History - chicken vaccinator: Tobacco Use History - chicken vaccinator Tobacco Use Smoking Status Never smoker 02/11/24 05:51 Hx Tobacco Use No 02/11/24 05:51 Years Smoking Packs Smoked per Day Smoking Cessation Date was within the last 15 years Hx Smoking Cessation Date Hx Smoking Cessation Counseling Hematologic Medial History Hematologic Hx - chicken vaccinator: Hematologic Medical Hx - environmental health and safety manager Hx of Blood Transfusion No 02/11/24 05:51 Hx of Transfusion in last 3 No 02/11/24 05:51 Months Date of Last Transfusion (if within last 3 months) Ever experience any problems No 02/11/24 05:51 with transfusion(s)? Specify any problems Hx of Preganancy in last 3 N/A 02/11/24 05:51 Months Nurse Filling Out Transfusion CSIGNORIN 02/11/24 05:51 & Questions: Date: 02/11/24 02/11/24 05:51 Time: 05:52 02/11/24 05:51 Patient unable to answer at this time (ie. confused, unrespo /Reproduction History /Reproductive History - chicken vaccinator: /Reproductive Hx- chicken vaccinator Hx Now Gestational Age (in weeks): EDC: Hx Hx Para Hx Section SAB No 02/10/24 13:50 Active Medications Active Medications: Current Medications Generic Name Dose Route Start Last Admin Trade Name Freq PRN Reason Stop Dose Admin Pantoprazole Sodium 40 mg/ 110 mls @ 330 mls/hr 02/11/24 10:00 02/11/24 11:19 Sodium Chloride IV Infused Q24 LATOYA Infusion Piperacillin Sod/Tazobactam 50 mls @ 12.5 mls/hr 02/11/24 06:00 02/11/24 13:13 Sod 3.375 gm/ Sodium Chloride IV 12.5 mls/hr Q8 LATOYA Administration Sodium Chloride 1,000 mls @ 125 mls/hr 02/11/24 04:56 02/11/24 13:13 IV 125 mls/hr .Q8H LATOYA Administration Sodium Chloride 250 mls @ 15 mls/hr 02/11/24 05:38 IV .[id number] PRN Additional IVPB Infusion Ketorolac Tromethamine 15 mg 02/11/24 05:37 02/11/24 08:41 Ketorolac 15 Mg/Ml Vial IV 02/16/24 05:37 15 mg Q6H PRN PRN Administration Pain 1-5/10 or Fever Morphine Sulfate 2 mg 02/11/24 05:37 02/11/24 12:02 Morphine 2 Mg/Ml Syringe IV 2 mg Q4H PRN PRN Administration Pain Score 6-10 Ondansetron HCl 4 mg 02/11/24 05:37 Ondansetron 4 Mg/2 Ml Vial IV Q8H PRN PRN NAUSEA/VOMITING Sodium Chloride 10 - 40 ml 02/11/24 05:38 02/11/24 12:01 0.9% Saline Lock 10 Ml Syringe IV 10 ml UD PRN Administration [facility] Medical History Alcohol use History of steroid therapy Fatty liver Back pain Non-smoker Impacted cerumen of both ears Anxiety Home Medications ?Medication ?Instructions ?Recorded ?Last Taken ?Type dextroamphetamine-amphetamine 20 20 mg PO DAILY 02/06/24 Unknown History mg tablet (Adderall) trazodone 100 mg tablet 100 mg PO QHS 02/09/24 Unknown History ondansetron 4 mg disintegrating 4 mg PO TID PRN nausea and 02/10/24 Unknown Rx tablet vomiting #21 tabs oxycodone-acetaminophen 5 mg-325 1 tab PO Q6H PRN pain 3 days #12 02/10/24 Unknown Rx mg tablet (Percocet) tabs Allergy/AdvReac Type Severity Reaction Status Date / Time No Known Allergies Allergy Verified 02/11/24 01:10 Surgical History Hx of wisdom tooth extraction Social History Smoking Status: Never smoker alcohol intake: current substance use type: does not use Review of Systems (Anesthesia) ROS Narrative System reviewed and no additional complaints, except as documented.
--- NOTE | 2024-02-11 16:00 | RAD_ITS ---
Fluoroscopic guided ERCP INDICATION: Pancreatitis TECHNIQUE: ERCP was performed in the anterior projection by the attending toby maker. FINDINGS: 10 fluoroscopic guided images were obtained in the axial projection during the exam to document findings during the study. For more complete information recommend correlation with toby maker notes. RAD/ERCP Biliary/Pancreas IMPRESSION: Fluoroscopic guided ERCP Electronically Signed: Venkatesh Calvillo MD at 18:20 EDT ,
--- NOTE | 2024-02-11 16:08 | EX.PCM.CON.G ---
HPI Consult Data Date of Consult: 02/11/24 HPI Narrative Reason for Consultation: Gallstone pancreatitis HPI Narrative: FADY HAWLEY, is a 33 M with a past medical history of recently diagnosed acute cholecystitis with multiple gallstones on recent ultrasound followed by Dr. Davis with plans made for laparoscopic cholecystectomy that was to be done on February 12, 2024 who presented to [facility] ER complaining of abdominal pain. Mr. Hawley reports his acute symptoms began approximately 1-2 days prior to admission with the gradual-onset of progressively worsening abdominal pain that was aching, diffuse and epigastric, mild and was not made better or worse by anything. He also admits to associated nausea with one episode of bilious emesis. He did take a Percocet about one half hour prior to arrival but when his symptoms were not controlled he decided to come in for further evaluation and treatment. He denies associated fever, chills, diarrhea, constipation, chest pain or SOB. In the ER he was noted to have laboratory evidence of hyperbilirubinemia of 2.2 mg/dL, with AST 285 U/L, ALT 576 U/L and Alkaline Phosphatase of 152 U/L present on admission complicated by acute gallstone pancreatitis confirmed by elevated serum lipase of >5K U/L [facility] Medical History Alcohol use History of steroid therapy Fatty liver Back pain Non-smoker Impacted cerumen of both ears Anxiety Home Medications ?Medication ?Instructions ?Recorded ?Last Taken ?Type dextroamphetamine-amphetamine 20 20 mg PO DAILY 02/06/24 Unknown History mg tablet (Adderall) trazodone 100 mg tablet 100 mg PO QHS 02/09/24 Unknown History ondansetron 4 mg disintegrating 4 mg PO TID PRN nausea and 02/10/24 Unknown Rx tablet vomiting #21 tabs oxycodone-acetaminophen 5 mg-325 1 tab PO Q6H PRN pain 3 days #12 02/10/24 Unknown Rx mg tablet (Percocet) tabs Allergy/AdvReac Type Severity Reaction Status Date / Time No Known Allergies Allergy Verified 02/11/24 01:10 Surgical History Hx of wisdom tooth extraction Social History Smoking Status: Never smoker alcohol intake: current substance use type: does not use ROS ROS Narrative Review of Systems: Constitutional: Patient denies fever or chills. Eyes: Patient denies changes in vision or discharge from eyes. ENT: Patient denies runny nose, sore throat or ear pain. CV: Patient denies chest pain, palpitations or heart racing. Resp: Patient denies SOB or cough. GI: Patient admits to abdominal pain and nausea with one episode of bilious emesis. He denies diarrhea or constipation. : Patient denies dysuria, hematuria or urinary hesitancy. MSK: Patient denies arthralgias and myalgias. Skin: Patient denies rash, abscess or jaundice. Psych: Patient denies symptoms of uncontrolled depression or anxiety. Neuro: Patient denies headache, paresthesias or focal neurologic deficits. Hematology: Patient denies easy bleeding or easy bruisability. Endocrinology: Patient denies polyuria, polydipsia or polyphagia. 14 point ROS otherwise negative except for positives noted above. Physical Exam Const alert, oriented x3, no apparent distress and average body habitus General Appearance: cooperative HEENT normocephalic, head/scalp atraumatic, hearing grossly normal bilaterally and moist oral mucous membranes Eyes PERRL and EOMs intact bilaterally Neck no lymphadenopathy and supple Resp normal respiratory effort, no retractions, no use of accessory muscles and clear to auscultation bilaterally Cardio regular rate and regular rhythm GI normal to inspection, nondistended, normoactive bowel sounds, soft to palpation and non-distended GI Narrative: Positive TTP in epigastrium. Extremity normal to inspection, full ROM and no clubbing, cyanosis or edema Skin Skin Narrative: Patient has no evidence of rash or abscess. Neuro oriented x3, CN's II-XII intact bilaterally, moves all extremities and no focal motor deficits Sensorium / Orientation: awake, alert, oriented to person, oriented to place and oriented to time Speech: speech normal Psych affect normal Lab / Micro Data 02/11/24 01:20 02/11/24 01:20 Labs: Laboratory Results - last 24 hr 02/11/24 01:20: WBC 8.6, RBC 4.99, Hgb 14.6, Hct 44.9, MCV 90.0, MCH 29.3, MCHC 32.5, RDW Std Deviation 42.8, RDW Coeff of Yoly 13.1, Plt Count 291, MPV 9.2, Immature Gran % (Auto) 0.200, Neut % (Auto) 65.0, Lymph % (Auto) 25.2, [place] % (Auto) 7.3, Eos % (Auto) 2.0, Baso % (Auto) 0.3, Absolute Neuts (auto) 5.6, Absolute Lymphs (auto) 2.17, Nucleated RBC % 0, Sodium 142, Potassium 4.1, Chloride 108 H, Carbon Dioxide 27.0, Anion Gap 7, BUN 7, Creatinine 1.14, Estim Creat Clear Calc 114.07, Est GFR (MDRD) Af Amer 96, Est GFR (MDRD) Non-Af 79, BUN/Creatinine Ratio 6.1 L, Glucose 116 H, Calcium 8.8, Phosphorus 3.7, Magnesium 2.0, Total Bilirubin 2.20 H, AST 285 H, ALT 576 H, Alkaline Phosphatase 152 H, Total Protein 7.1, Albumin 3.5, Globulin 3.6, Albumin/Globulin Ratio 1.0, Lipase > 5000 H, TSH 1.190 Imaging Radiology Impression Abdomen/Pelvis CT 02/11/24 04:19 IMPRESSION: There is diffuse enlargement of the pancreas with fito-pancreatic edema consistent with acute pancreatitis. Cholelithiasis. Electronically Signed: Bhavesh Barillas MD at 4:51 EDT Reading Location ID and State: [facility] / [place] Tel , Service support , Assessment & Plan Assessment/Plan (1) Acute gallstone pancreatitis: (2) Acute cholecystitis due to biliary calculus: (3) Abdominal pain: QUALIFIERS: Abdominal location: epigastric Qualified Code(s): R10.13 - Epigastric pain (4) Nausea and vomiting: QUALIFIERS: Vomiting type: unspecified Qualified Code(s): R11.2 - Nausea with vomiting, unspecified (5) Anxiety: PLAN: Plan 1. Acute Gallstone Pancreatitis with known gallstones on recent GB US and serum lipase of >5K. Agree with empiric IV Zosyn until ERCP can be done and gallbladder can be removed. He will undergo ERCP with stone removal. He was explained alternatives, risk, benefits include not withstanding bleeding, infection, sepsis, perforation, need for emergent urgent . He will have an ASA of 3. 2. Cholelithiasis with Biliary Colic and laboratory evidence of hyperbilirubinemia of 2.2 mg/dL, with AST 285 U/L, ALT 576 U/L and Alkaline Phosphatase of 152 U/L present on admission complicating #1 - General surgery to see this patient on-rounds in the AM for further recommendations regarding previously scheduled semi-elective cholecystectomy with help appreciated in advance. Charges/Coding Visit Charges Inpatient E&M: 14985 Init Hosp L3
--- NOTE | 2024-02-11 17:07 | PCM.POST.ANE ---
Anesthesia: Postop Eval I Current Vital Signs Temperature: 98.2 F Pulse Rate: 79 Blood Pressure: 127/66 Respiratory Rate: 20 Pulse Ox: 94 Assessment Airway patent: Yes Spontaneous unlabored respirations: Yes nausea: No Vomiting: No Anesthesia Complication: No Fluid Hydration Crystalloid volume administer (ml): 800 Total IV fluid infused: 800 Progress Note Anesthesia document: Postop Eval 1 completed: Yes
--- NOTE | 2024-02-11 17:11 | OP.ERCP_ITS ---
Patient Name: Pratik Dasilva Procedure Date: 02/11/2024 4:12 PM Date of : 1990 Age: 33 Procedure: ERCP Indications: Bile duct stone(s), Jaundice, Elevated liver enzymes Providers: Akshat aGrcia DO Medicines: Monitored Anesthesia Care Patient Profile: This is a 33 year old male. Refer to note in patient chart for documentation of history and physical. Patient has symptoms of acute right upper quadrant abdominal pain and acute jaundice. This patient has no history of previous ERCP. This patient has no history of surgical alteration of the upper digestive tract anatomy. Complications: No immediate complications. Procedure: Pre-Anesthesia Assessment: - Prior to the procedure, a History and Physical was performed, and patient medications and allergies were reviewed. The patient is competent. The risks and benefits of the procedure and the sedation options and risks were discussed with the patient. All questions were answered and informed consent was obtained. Patient identification and proposed procedure were verified by the physician in the pre-procedure area. Mental Status Examination: alert and oriented. Airway Examination: normal oropharyngeal airway and neck mobility. Respiratory Examination: clear to auscultation. CV Examination: normal. Prophylactic Antibiotics: The patient does not require prophylactic antibiotics. Prior Anticoagulants: The patient has taken no anticoagulant or antiplatelet agents except for NSAID medication. ASA Grade Assessment: II - A patient with mild systemic disease. After reviewing the risks and benefits, the patient was deemed in satisfactory condition to undergo the procedure. The anesthesia plan was to use monitored anesthesia care (MAC). Immediately prior to administration of medications, the patient was re-assessed for adequacy to receive sedatives. The heart rate, respiratory rate, oxygen saturations, blood pressure, adequacy of pulmonary ventilation, and response to care were monitored throughout the procedure. The physical status of the patient was re-assessed after the procedure. After obtaining informed consent, the scope was passed under direct vision. Throughout the procedure, the patient's blood pressure, pulse, and oxygen saturations were monitored continuously. The Duodenoscope was introduced through the mouth, and advanced to the duodenum and used to inject contrast into the bile duct and ventral pancreatic duct. The ERCP was accomplished without difficulty. The patient tolerated the procedure well. Scope In: 4:23:35 PM Scope Out: 4:50:23 PM Total Procedure Duration Time 0 hours 26 minutes 48 seconds Findings: The coating operator film was normal. The esophagus was successfully intubated under direct vision. The scope was advanced to a normal major papilla in the descending duodenum without detailed examination of the pharynx, larynx and associated structures, and upper GI tract. The upper GI tract was grossly normal. The ventral pancreatic duct was deeply cannulated with the short-nosed traction sphincterotome. Contrast was injected. I personally interpreted the bile duct and pancreatic duct images. There was brisk flow of contrast through the ducts. Image quality was excellent. Contrast extended to the pancreatic duct. Opacification of the entire pancreatic ductal system was successful. The maximum diameter of the ducts was 2 mm. The entire opacified area was normal. A long 0.025 inch Jagwire was passed into the ventral pancreatic duct. A 5 mm ventral pancreatic sphincterotomy was made with a monofilament traction (standard) sphincterotome using ERBE electrocautery. There was no post-sphincterotomy bleeding. One 5 Fr by 7 cm temporary stent with a single external flap and two internal flaps was placed 5 cm into the ventral pancreatic duct. Clear fluid flowed through the stent. The stent was in good position. The bile duct was deeply cannulated with the short-nosed traction sphincterotome. Contrast was injected. Opacification of the entire opacified area was successful. The maximum diameter of the ducts was 10 mm. The lower third of the main bile duct contained one stone, which was 6 mm in diameter. The main bile duct was diffusely dilated, acquired. The largest diameter was 5 mm. A long 0.025 inch Jagwire was passed into the biliary tree. A 4 mm biliary sphincterotomy was made with a traction (standard) sphincterotome using ERBE electrocautery. There was no post-sphincterotomy bleeding. The biliary tree was swept with a 12 mm balloon starting at the bifurcation. Sludge was swept from the duct. All stones were removed. One 7 Fr by 5 cm temporary stent was placed 5 cm into the common bile duct. Bile flowed through the stent. The stent was in good position. Impression: - The entire main bile duct was dilated, acquired. - Choledocholithiasis was found. Complete removal was accomplished by biliary sphincterotomy and balloon extraction. - A pancreatic sphincterotomy was performed. - One temporary stent was placed into the ventral pancreatic duct. - A biliary sphincterotomy was performed. - The biliary tree was swept. Procedure Code(s): --- Professional --- [id number], Endoscopic retrograde cholangiopancreatography (ERCP); with placement of endoscopic stent into biliary or pancreatic duct, including pre- and post-dilation and guide wire passage, when performed, including sphincterotomy, when performed, each stent [id number], 59, Endoscopic retrograde cholangiopancreatography (ERCP); with placement of endoscopic stent into biliary or pancreatic duct, including pre- and post-dilation and guide wire passage, when performed, including sphincterotomy, when performed, each stent [id number], Endoscopic retrograde cholangiopancreatography (ERCP); with removal of calculi/debris from biliary/pancreatic duct(s) 13879, 26, Combined endoscopic catheterization of the biliary and pancreatic ductal systems, radiological supervision and interpretation CPT copyright 2021 [employer]. All rights reserved. The codes documented in this report are preliminary and upon recycling assistant review may be revised to meet current compliance requirements. Akshat Garcia DO 02/11/2024 5:11:25 PM This report has been signed electronically. Number of Addenda: 0 Note Initiated On: 02/11/2024 4:12 PM
--- NOTE | 2024-02-11 17:12 | OP.CCLET_ITS ---
02/11/2024 Javier Watts [address] [place] [address] Re : ERCP procedure for Pratik Dasilva Dear Dr. Watts This procedure was performed on Sunday, February 11, 2024. My impressions and recommendations are as follows: Impressions : - The entire main bile duct was dilated, acquired. - Choledocholithiasis was found. Complete removal was accomplished by biliary sphincterotomy and balloon extraction. - A pancreatic sphincterotomy was performed. - One temporary stent was placed into the ventral pancreatic duct. - A biliary sphincterotomy was performed. - The biliary tree was swept. Recommendations : My findings are described in the full procedure note, which is enclosed. If I can be of further assistance, please feel free to contact me at . Sincerely, Akshat Garcia, 02/11/2024 5:11:25 PM This report has been signed electronically.
[2024-02-11] MEDS: 0.9% Normal Saline (1000mL) 1,000 ML 250 ML IV ×2 (18:03→22:18)
--- NOTE | 2024-02-11 18:59 | PCM.HOSP.N ---
Hospitalist Note Patient was seen and examined today briefly, he underwent an ERCP today and he was found to have choledocholithiasis, complete removal was accomplished by biliary sphincterotomy and balloon extraction. Temporary stent was placed into the ventral pancreatic duct and the entire main bile duct was found to be dilated. It is possible patient may undergo a cholecystectomy tomorrow by general surgery.
--- NOTE | 2024-02-11 20:17 | POSTOPAN2_ITS ---
Anesthesia Postop Eval I Sum Postop Eval Completion status Anesthesia document: Postop Eval 1 completed: Yes Anesthesia Postop Eval I Summary Anesthesia Postop Eval I Summary: Anesthesia Postop Eval I: Assessment Summary Airway patent Yes 02/11/24 17:07 [email or web address] [email or web address] Spontaneous unlabored Yes 02/11/24 17:07 ETHNOARCHAEOLOGY [email or web address].[email or web address] respirations Mental status nausea No 02/11/24 17:07 [email or web address] PROFESSOR.CSIR Vomiting No 02/11/24 17:07 ETHNOARCHAEOLOGY [email or web address].CSIR Anesthesia Postop Eval I: Fluid Summary Crystalloid volume administer 800 02/11/24 17:07 [email or web address] [email or web address].CSIR (ml) Colloids volume administered ( ml) Blood Product volume administered (ml) Total IV fluid infused 800 02/11/24 17:07 ETHNOARCHAEOLOGY PROFESSOR.CSIR Anesthesia Postop Eval I: Summary Notes Anesthesia Complication No 02/11/24 17:07 ETHNOARCHAEOLOGY PROFESSOR.CSIR Anesthesia Complication Comment: Post-operative progress note Anesthesia: Postop Eval II Evaluation Mental status: Awake and Calm Pain Level: 1 nausea: No Vomiting: No Complications Anesthesia Complication: No
--- NOTE | 2024-02-11 20:17 | PCM.POSTANE2 ---
Anesthesia Postop Eval I Sum Postop Eval Completion status Anesthesia document: Postop Eval 1 completed: Yes Anesthesia Postop Eval I Summary Anesthesia Postop Eval I Summary: Anesthesia Postop Eval I: Assessment Summary Airway patent Yes 02/11/24 17:07 ARCHITECTURAL MANAGER.[email or web address] Spontaneous unlabored Yes 02/11/24 17:07 ARCHITECTURAL MANAGER.CSIR respirations Mental status nausea No 02/11/24 17:07 ARCHITECTURAL MANAGER.CSIR Vomiting No 02/11/24 17:07 ARCHITECTURAL MANAGER.CSIR Anesthesia Postop Eval I: Fluid Summary Crystalloid volume administer 800 02/11/24 17:07 ARCHITECTURAL MANAGER.CSIR (ml) Colloids volume administered ( ml) Blood Product volume administered (ml) Total IV fluid infused 800 02/11/24 17:07 ARCHITECTURAL MANAGER.CSIR Anesthesia Postop Eval I: Summary Notes Anesthesia Complication No 02/11/24 17:07 ARCHITECTURAL MANAGER.CSIR Anesthesia Complication Comment: Post-operative progress note Anesthesia: Postop Eval II Evaluation Mental status: Awake and Calm Pain Level: 1 nausea: No Vomiting: No Complications Anesthesia Complication: No
[2024-02-12] VITALS (11 sets, daily range): BP systolic 97–141; BP diastolic 52–82; PULSE 68–78; RESP 14–16; TEMP 36–37.1; O2SAT 94–100
[2024-02-12] MEDS: Ketorolac 15 MG/ML Vial IV ×2 (00:06→13:50)
[2024-02-12] MEDS: Piperacil/Tazobactam 3.375 GM in 0.9% Normal Saline (50mL MB+) 50 ML IV ×2 (05:20→13:33)
[2024-02-12 06:55] LABS: Absolute Lymphocyte Count 1.36 X10^3/uL (0.83-4.51); Absolute Neutrophil Count 6.7 X10^3/uL (2.0-7.7); Basophil# 0.01 X10^3/uL; Basophil% 0.1 % (0-1); Eosinophils% 1.1 % (0-5); Hematocrit 39.6 % (40-54); Hemoglobin 13.1 g/dL (13.0-16.5); Lymphocyte # 1.36 X10^3/ul (0.83-4.51); Lymphocyte % 15.2 % (19-41); Mean Corp Hgb Conc 33.1 g/dL (32-36); Mean Corpuscular Hgb 29.6 pg (27.0-32.0); Mean Corpuscular Volume 89.4 fL (80-94); Mean Platelet Vol. 9.2 fl (6.2-12.0); Monocyte# 0.71 X10^3/uL; NRBC Flagged by Analyzer 0 % (0-5); Neutrophil % 75.2 % (47-70); Platelet Count 258 K/mm3 (150-450); RBC Distribution Width CV 12.8 % (11.6-14.6); RBC Distribution Width SD 41.9 fl (35.1-43.9); Red Blood Count 4.43 M/mm3 (4.6-6.2); White Blood Count 8.9 K/mm3 (4.4-11.0)
[2024-02-12 07:24] LABS: ALB/GLOB Ratio 0.9 RATIO (0.9-2.4); AST(SGOT) 80 U/L (15-37); Alanine Aminotransfer ALT/SGPT 301 U/L (16-61); Alkaline Phosphatase 124 U/L (45-117); Anion Gap 3 (5-15); BUN 8 mg/dL (7-18); Calcium,Total 8.3 mg/dL (8.5-10.1); Chloride 111 mmol/L (98-107); Creatinine, Serum 0.89 mg/dL (0.70-1.30); EST Glomerular Filtration Rate 106 mL/min (>60); Est Glom Filt Rate - Afr Amer 128 mL/min (>60); Estimated Creatinine Clearance 143.22 ml/min; Globulin 3.2 g/dL (2.2-4.2); Glucose 98 mg/dL (74-106); Lipase 265 U/L (13-75); Potassium 3.7 mmol/L (3.5-5.1); Protein, Total 6.2 g/dL (6.4-8.2); Sodium Level 140 mmol/L (136-145)
[2024-02-12] MEDS: 0.9% Normal Saline (1000mL) 1,000 ML 15 ML IV (07:50)
--- NOTE | 2024-02-12 08:01 | PCM.PN.SRG ---
Subjective Subjective Patient presented with gallstone pancreatitis yesterday and had ERCP. patient says his pain is resolving but he still some mild epigastric pain. Objective Data Objective Data Vital Signs: Vital Signs Temp Pulse Resp BP Pulse Ox O2 Del Method 98.2 F 78 16 97/52 L 96 Room Air 02/12/24 02:00 02/12/24 02:00 02/12/24 02:00 02/12/24 02:00 02/12/24 02:00 02/12/24 02:00 Oxygen Delivery Method Room Air Weight: 222 lb 10.67 oz Body Mass Index (BMI) 31.1 Intake & Output: Intake and Output for Last 24 Hours 02/10/24 02/11/24 02/12/24 23:59 23:59 23:59 Intake Total 2666.25 / 2666.25 1050 / 1050 Balance 2666.25 / 2666.25 1050 / 1050 Lab / Micro Data 02/12/24 06:35 02/12/24 06:35 Labs: Laboratory Results - last 24 hr 02/12/24 06:35: WBC 8.9, RBC 4.43 L, Hgb 13.1, Hct 39.6 L, MCV 89.4, MCH 29.6, MCHC 33.1, RDW Std Deviation 41.9, RDW Coeff of Yoly 12.8, Plt Count 258, MPV 9.2, Immature Gran % (Auto) 0.400, Neut % (Auto) 75.2 H, Lymph % (Auto) 15.2 L, Bertie % (Auto) 8.0, Eos % (Auto) 1.1, Baso % (Auto) 0.1, Absolute Neuts (auto) 6.7, Absolute Lymphs (auto) 1.36, Nucleated RBC % 0, Sodium 140, Potassium 3.7, Chloride 111 H, Carbon Dioxide 26.0, Anion Gap 3 L, BUN 8, Creatinine 0.89, Estim Creat Clear Calc 143.22, Est GFR (MDRD) Af Amer 128, Est GFR (MDRD) Non-Af 106, BUN/Creatinine Ratio 9.0 L, Glucose 98, Calcium 8.3 L, Total Bilirubin 0.80, AST 80 H, ALT 301 H, Alkaline Phosphatase 124 H, Total Protein 6.2 L, Albumin 3.0 L, Globulin 3.2, Albumin/Globulin Ratio 0.9, Lipase 265 H Radiography Diagnostic Testing: Radiology Impression Endo Retro Cholangiopancreatogram 02/11/24 16:00 IMPRESSION: Fluoroscopic guided ERCP Electronically Signed: Venkatesh Calvillo MD at 18:20 EDT , Physical Exam Const oriented x3 and no apparent distress Resp normal respiratory effort GI soft to palpation Palpation: tender epigastric Assessment & Plan Assessment/Plan (1) Nausea and vomiting: QUALIFIERS: Vomiting type: unspecified Qualified Code(s): R11.2 - Nausea with vomiting, unspecified (2) Acute gallstone pancreatitis: PLAN: Plan Patient had gallstone pancreatitis and had ERCP with stone removal and stent placement. Today the patient feels improved. Plan for laparoscopic cholecystectomy this morning. I discussed the procedure in detail with the patient. I discussed the risks, benefits, and alternatives of the procedure. I discussed the risks including but not limited to bleeding, infection, injury to surrounding organs such as the liver, bile duct, bowels. I did discuss the possibility of having to convert to an open procedure as well as the possibility that if any injuries occurred this may necessitate further surgery at a tertiary care center. Lamine Davis MD Pager: [facility] [address] [place] [address], [address] [place] [address] Office:
--- NOTE | 2024-02-12 08:08 | PRE.ANES_ITS ---
ASA Classification* ASA Classification ASA Classification: 2 Assessment & Plan Anesthesia* Anesthesia Assessment Anesthesia Assessment: Discussed sedation and/or anesthesia options, risks, benefits, and alternatives with patient/parents/legal guardian/POA. Questions invited. The patient/parents/legal guardian/POA seems to understand and agrees to proceed with anesthesia plan. Reviewed the physical assessment, medical history, allergy history and patient home medications list prior to surgery/procedure/anesthetic and documented any changes. Performed airway and anesthesia risk assessments. Anesthesia Type Anesthesia Type: General Anesthesia Focused Assessment* Temperature: 98.2 F Pulse Rate: 78 Blood Pressure: 97/52 Respiratory Rate: 16 Pulse Ox: 96 Airway Assessment Mouth opens: >3 cm Mallampati Score: II Focused Labs Anesthesia Preop lab: CBC WBC 8.9 K/mm3 (4.4-11.0) 02/12/24 06:35 RBC 4.43 M/mm3 (4.6-6.2) L 02/12/24 06:35 Hgb 13.1 g/dL (13.0-16.5) 02/12/24 06:35 Hct 39.6 % (40-54) L 02/12/24 06:35 Plt Count 258 K/mm3 (150-450) 02/12/24 06:35 CHEMISTRY Potassium 3.7 mmol/L (3.5-5.1) 02/12/24 06:35 Sodium 140 mmol/L (136-145) 02/12/24 06:35 Magnesium 2.0 mg/dL (1.6-2.6) 02/11/24 01:20 Phosphorus 3.7 mg/dL (2.5-4.9) 02/11/24 01:20 BUN 8 mg/dL (7-18) 02/12/24 06:35 Creatinine 0.89 mg/dL (0.70-1.30) 02/12/24 06:35 Glucose 98 mg/dL (74-106) 02/12/24 06:35 TSH 1.190 uIU/mL (0.358-3.740) 02/11/24 01:20 COAG Pre-Assessment Diagnosis/Proposed Procedure Planned Operative Procedure(s): Laproscopic Deirdre Anesthesia History Anesthesia History - setter induction heating equipment: Anesthesia History - setter induction heating equipment Hx Hospitalization No 02/10/24 13:50 Any Problems With Anesthesia No 02/12/24 02:43 Cholinesterase deficiency No 02/12/24 02:43 You/Your Family Experience No 02/12/24 02:43 fever (hyperthermia) with Relationship Recent Exposure to Contagious No 02/12/24 02:43 Disease Does patient have nerve No 02/12/24 02:43 stimulator Patient instructed to have No 02/12/24 02:43 device shut off --Does patient have Pacemaker No 02/11/24 14:41 or ICD? When Was Last Pacemaker Check QUESTION #4 FULL TEXT: You/Your Family Experience fever (hyperthermia) with Anesthesia Last Oral Intake Last Oral intake: Last Oral Intake NPO since 01:00 02/11/24 15:20 Meds taken in AM with sips of water? Meds patient instructed to take am of surgery PONV PONV - setter induction heating equipment: PONV - setter induction heating equipment Female HX of Motion Sickness HX of N/V After Surgery Non-Smoker Duration of Surgery greater than 60 minutes Number of Risk Factors PONV Score Height & Weight Height & Weight: Anesthesia: Height & Weight Height 5 ft 10.87 in 02/11/24 14:41 Weight: 101 kg 02/11/24 14:41 Body Mass Index (BMI) 31.1 02/11/24 14:41 Respiratory Assessment Respiratory Assessment - setter induction heating equipment: Respiratory Tract Infection Hx - setter induction heating equipment Hx Respiratory Tract Infection No 02/12/24 02:43 STOP Sleep Apnea STOP Sleep Apnea - setter induction heating equipment: STOP Sleep Apnea - setter induction heating equipment Hx Hypertension No 02/11/24 05:51 Hx Sleep Apnea No 02/11/24 17:35 CPAP BIPAP Do you snore loudly (louder No 02/11/24 05:51 than talking or can be heard Do you often feel tired/ No 02/11/24 05:51 fatigued/ sleepy during daytime? Has anyone observed you stop No 02/11/24 05:51 breathing during sleep? STOP Results Negative 02/11/24 17:06 QUESTION #5 FULL TEXT : Do you snore loudly (louder than talking or can be heard through closed doors)? Tobacco Use History Tobacco Use History - setter induction heating equipment: Tobacco Use History - setter induction heating equipment Tobacco Use Smoking Status Never smoker 02/11/24 05:51 Hx Tobacco Use No 02/11/24 05:51 Years Smoking Packs Smoked per Day Smoking Cessation Date was within the last 15 years Hx Smoking Cessation Date Hx Smoking Cessation Counseling Hematologic Medial History Hematologic Hx - setter induction heating equipment: Hematologic Medical Hx - clothing manager Hx of Blood Transfusion No 02/11/24 05:51 Hx of Transfusion in last 3 No 02/11/24 05:51 Months Date of Last Transfusion (if within last 3 months) Ever experience any problems No 02/11/24 05:51 with transfusion(s)? Specify any problems Hx of Preganancy in last 3 N/A 02/11/24 05:51 Months Nurse Filling Out Transfusion CSIGNORIN 02/11/24 05:51 & Questions: Date: 02/11/24 02/11/24 05:51 Time: 05:52 02/11/24 05:51 Patient unable to answer at this time (ie. confused, unrespo /Reproduction History /Reproductive History - setter induction heating equipment: /Reproductive Hx- setter induction heating equipment Hx Now Gestational Age (in weeks): EDC: Hx Hx Para Hx Section SAB No 02/12/24 02:43 Active Medications Active Medications: Current Medications Generic Name Dose Route Start Last Admin Trade Name Freq PRN Reason Stop Dose Admin Pantoprazole Sodium 40 mg/ 110 mls @ 330 mls/hr 02/11/24 10:00 02/11/24 11:19 Sodium Chloride IV Infused Q24 LATOYA Infusion Piperacillin Sod/Tazobactam 50 mls @ 12.5 mls/hr 02/11/24 06:00 02/12/24 05:20 Sod 3.375 gm/ Sodium Chloride IV 12.5 mls/hr Q8 LATOYA Administration Sodium Chloride 1,000 mls @ 250 mls/hr 02/11/24 04:56 02/12/24 07:44 IV Not Given .Q4H LATOYA Sodium Chloride 250 mls @ 15 mls/hr 02/11/24 05:38 IV .[id number] PRN Additional IVPB Infusion Sodium Chloride 1,000 mls @ 15 mls/hr 02/12/24 07:50 02/12/24 07:50 IV 15 mls/hr .Q48H LATOYA Administration Ketorolac Tromethamine 15 mg 02/11/24 05:37 02/12/24 00:06 Ketorolac 15 Mg/Ml Vial IV 02/16/24 05:37 15 mg Q6H PRN PRN Administration Pain 1-5/10 or Fever Morphine Sulfate 2 mg 02/11/24 05:37 02/11/24 12:02 Morphine 2 Mg/Ml Syringe IV 2 mg Q4H PRN PRN Administration Pain Score 6-10 Ondansetron HCl 4 mg 02/11/24 05:37 02/11/24 18:03 Ondansetron 4 Mg/2 Ml Vial IV 4 mg Q8H PRN PRN Administration NAUSEA/VOMITING Sodium Chloride 10 - 40 ml 02/11/24 05:38 02/11/24 18:04 0.9% Saline Lock 10 Ml Syringe IV 10 ml UD PRN Administration SALINE FLUSH [facility] Medical History Alcohol use History of steroid therapy Fatty liver Back pain Non-smoker Impacted cerumen of both ears Anxiety Home Medications ?Medication ?Instructions ?Recorded ?Last Taken ?Type dextroamphetamine-amphetamine 20 20 mg PO DAILY 02/06/24 Unknown History mg tablet (Adderall) trazodone 100 mg tablet 100 mg PO QHS 02/09/24 Unknown History ondansetron 4 mg disintegrating 4 mg PO TID PRN nausea and 02/10/24 Unknown Rx tablet vomiting #21 tabs oxycodone-acetaminophen 5 mg-325 1 tab PO Q6H PRN pain 3 days #12 02/10/24 Unknown Rx mg tablet (Percocet) tabs Allergy/AdvReac Type Severity Reaction Status Date / Time No Known Allergies Allergy Verified 02/11/24 01:10 Surgical History Hx of wisdom tooth extraction Social History Smoking Status: Never smoker alcohol intake: current substance use type: does not use Review of Systems (Anesthesia) ROS Narrative System reviewed and no additional complaints, except as documented.
--- NOTE | 2024-02-12 08:45 | RAD_ITS ---
STUDY: INTRAOPERATIVE CHOLANGIOGRAM. REASON FOR EXAM: Male, 33 years old. PAIN FLUOROSCOPY TIME (if supplied): ( 27.8 seconds ) minutes/seconds. 16.13 mGy. TECHNIQUE: Intraoperative cholangiogram was performed by the surgeon. Fluoroscopic imaging was provided. COMPARISON: None. FINDINGS: The intra and extrahepatic biliary ducts are unremarkable. No intraluminal filling defect is seen. RAD/Cholangiogram/ O R,Initial IMPRESSION: Unremarkable intraoperative cholangiogram. Electronically Signed: Esteban Majano MD at 11:00 EDT ,
--- NOTE | 2024-02-12 08:50 | GALL_PTH ---
PATIENT: FADY HAWLEY LOC: MS3 U#:[id number] AGE/SX: 33/M ROOM: NC320 RE02/11/[address]: Dr. Geremias Foley DO : 1990 BED: 1 DIS: 02/13/2024 SPEC #: [id number] RECD: 02/12/24 10:04 STATUS: NATALIE BENOIT #: [id number] VELIA: 02/12/24 08:[address]: Lamine Davis DEPT: SURGICAL PATHOLOGY RECD BY: Taylor Mendez ENTERED: 02/12/24 11:17 SP TYPE: GALLBLADDE OT DR: MD Dr. Leland Cox DO Dr. Mark Tereletsky, DO Dr. Rahsaan Friend, DO Dr. Tamera Robotham, MD Tissues: Gallbladder, NOS Procedures: Surgery Specimen Level III HEADER OPERATION: Laparoscopic cholecystectomy with IOC PRE-OP DIAGNOSIS: Acute gallstone pancreatitis, acute cholecystitis due to biliary calculus, abdominal pain, nausea/vomiting TISSUE SUBMITTED: Gallbladder MICROSCOPIC DIAGNOSIS Gallbladder, cholecystectomy: Acute and chronic cholecystitis, cholelithiasis and cholesterolosis. JEANNINE. 02/13/2024 MICROSCOPIC DESCRIPTION Slides are reviewed. GROSS DESCRIPTION Received is one container labeled with the patient's name and designated gallbladder. The specimen consists of a gallbladder measuring 9.0 cm in length and up to 4.0 cm in diameter. The external surface is pink-pimentel, smooth and glistening for the most part. Focally it is granular, hemorrhagic and contains cautery artifact. The gallbladder contains green-yellow mucoid bile and multiple mulberry-orange stones measuring in aggregate 4.0 x 3.0 x 1.0 cm and 0.1 to 0.5 cm in greatest dimension. The mucosa also shows several yellowish streaks consistent with cholesterolosis. The mucosa is bile-stained and without any mass lesions. The gallbladder wall measures up to 0.5 cm in thickness. Sections of the gallbladder wall reveal edemotous cut surfaces. Payroll Benefits Clerk sections from the gallbladder and the cystic duct are submitted in one cassette. / SJ: 02/12/2024 TC:2 CPT: 06689
--- NOTE | 2024-02-12 09:43 | PCM.OPRPT ---
Report of Operation Date of Procedure: 02/12/24 Pre-Operative Diagnosis: Acute cholecystitis Post-Operative Diagnosis: Acute cholecystitis, pancreatitis Surgery/Procedure Performed:: Laparoscopic cholecystectomy with cholangiograms Description of Surgical Findings:: Normal cholangiograms with stent in place Type of Anesthesia: General/Regional Specimen's removed: Gallbladder Estimated Blood Loss (mL): 20 Description of Procedure: After obtaining informed consent patient was brought back to the operating room. General anesthesia was induced. The abdomen was prepped and draped in usual sterile fashion. A small midline incision was made superior to the umbilicus and deepened to the level of fascia. The fascia was elevated and incised. Next the peritoneum was elevated and incised in the same fashion. Finger sweep was performed and the Ospina trocar was placed into the abdomen. The balloon was inflated. The abdomen was inflated to 15 mmHg. Next a camera was introduced into the abdomen and the abdomen was inspected. Next under direct visualization three 5-mm ports were placed one subxiphoid and 2 subcostal. Next the gallbladder was elevated and retracted toward the right shoulder. The peritoneum was stripped from the gallbladder. The infundibulum was located and retracted laterally. Next the triangle of Calot was dissected and the cystic duct and cystic artery were identified. Cholangiograms were performed. The Platt clamp was used to clamp across the infundibulum and the catheter needle was inserted into the gallbladder. Under fluoroscopy contrast was instilled into the gallbladder and the common duct, cystic duct as well as proximal hepatic ducts were identified. There was good filling of the duodenum. There were no filling defects noted in the common bile duct. The clamp was removed as well as the needle and the infundibulum was grasped once more. Three hemolock clips were placed across the cystic duct. The cystic duct was then divided leaving 2 clips on the stump. The cystic artery was clipped and divided in the same fashion. The hook cautery was then used to take the gallbladder off of the gallbladder bed. Hemostasis was obtained using electrocautery and hemoblast. Gallbladder fossa was irrigated and no active bleeding or bile leakage was noted. Next the camera was introduced in the subxiphoid port. An Endopouch bag was placed through the umbilical port and the gallbladder was placed into it. The gallbladder was then removed through the umbilical incision. The camera was then reinserted through the umbilical port. The gallbladder fossa was inspected once more and noted to be hemostatic with no leaking bile. The abdomen was suctioned dry. The 5 mm ports were removed under direct visualization. The umbilical port was then removed and the air was removed from the abdomen. Next using an 0 Vicryl suture the umbilical fascia was closed in a [id number] fashion. The umbilical port site was irrigated local anesthetic was administered to all the incisions. All the incisions were closed with interrupted subcuticular 4-0 Monocryl sutures followed by Steri-Strips and dressings. The patient was awoken and taken to PACU in stable condition. Admit VTE Documentation VTE Mechan Device Prophylaxis: SCD's
--- NOTE | 2024-02-12 09:58 | PCM.POST.ANE ---
Anesthesia: Postop Eval I Current Vital Signs Temperature: 96.8 F Pulse Rate: 72 Blood Pressure: 125/66 Respiratory Rate: 14 Pulse Ox: 94 Oxygen Delivery Method: Room Air Assessment Airway patent: Yes Spontaneous unlabored respirations: Yes Mental status: Awake and Calm nausea: No Vomiting: No Anesthesia Complication: No Fluid Hydration Crystalloid volume administer (ml): 1,500 Total IV fluid infused: 1,500 Progress Note Anesthesia document: Postop Eval 1 completed: Yes
[2024-02-12] MEDS: Lactated Ringers 1,000 ML 15 ML IV (11:14)
[2024-02-12] MEDS: Ondansetron 4 MG/2 ML Vial IV (11:41)
[2024-02-12] MEDS: Morphine 2 MG/ML Syringe IV (11:41)
[2024-02-12] MEDS: Pantoprazole Sodium 40 MG in 0.9% Normal Saline (100mL MB+) 100 ML 330 MG IV (11:42)
--- NOTE | 2024-02-12 13:06 | POSTOPAN2_ITS ---
Anesthesia Postop Eval I Sum Postop Eval Completion status Anesthesia document: Postop Eval 1 completed: Yes Anesthesia Postop Eval I Summary Anesthesia Postop Eval I Summary: Anesthesia Postop Eval I: Assessment Summary Airway patent Yes 02/12/24 09:59 [email or web address] Spontaneous unlabored Yes 02/12/24 09:59 [email or web address] [email or web address] respirations Mental status Awake,Calm 02/12/24 09:59 [email or web address] [email or web address] nausea No 02/12/24 09:59 NUT [email or web address] Vomiting No 02/12/24 09:59 [email or web address] [email or web address] Anesthesia Postop Eval I: Fluid Summary Crystalloid volume administer 1,500 02/12/24 09:59 NUT [email or web address] (ml) Colloids volume administered ( ml) Blood Product volume administered (ml) Total IV fluid infused 1,500 02/12/24 09:59 NUT [email or web address] Anesthesia Postop Eval I: Summary Notes Anesthesia Complication No 02/12/24 09:59 NUT [email or web address] Anesthesia Complication Comment: Post-operative progress note Anesthesia: Postop Eval II Evaluation Mental status: Awake and Calm Pain Level: 1 nausea: No Vomiting: No Complications Anesthesia Complication: No
--- NOTE | 2024-02-12 13:06 | PCM.POSTANE2 ---
Anesthesia Postop Eval I Sum Postop Eval Completion status Anesthesia document: Postop Eval 1 completed: Yes Anesthesia Postop Eval I Summary Anesthesia Postop Eval I Summary: Anesthesia Postop Eval I: Assessment Summary Airway patent Yes 02/12/24 09:59 CONTENT [email or web address] Spontaneous unlabored Yes 02/12/24 09:59 CONTENT [email or web address] respirations Mental status Awake,Calm 02/12/24 09:59 CONTENT [email or web address] nausea No 02/12/24 09:59 CONTENT [email or web address] Vomiting No 02/12/24 09:59 CONTENT [email or web address] Anesthesia Postop Eval I: Fluid Summary Crystalloid volume administer 1,500 02/12/24 09:59 CONTENT [email or web address] (ml) Colloids volume administered ( ml) Blood Product volume administered (ml) Total IV fluid infused 1,500 02/12/24 09:59 CONTENT [email or web address] Anesthesia Postop Eval I: Summary Notes Anesthesia Complication No 02/12/24 09:59 CONTENT [email or web address] Anesthesia Complication Comment: Post-operative progress note Anesthesia: Postop Eval II Evaluation Mental status: Awake and Calm Pain Level: 1 nausea: No Vomiting: No Complications Anesthesia Complication: No
--- NOTE | 2024-02-12 13:13 | ANES.CONFIRM ---
Anesthesia: Confirm Documents Multiple Procedures on Account (2) Confirmed Documents: Yes
[2024-02-12] MEDS: 0.9% Saline Lock 10 ML Syringe IV (13:50)
[2024-02-12] MEDS: oxyCODONE 5 MG Tablet PO (15:34)
--- NOTE | 2024-02-12 18:06 | PCM.PN.HOSP ---
Reason for Visit Reason for Visit: Diagnoses Anxiety disorder, unspecified (02/11/24) Calculus of gallbladder with acute cholecystitis without obstruction (02/11/24) Biliary acute pancreatitis without necrosis or infection (02/11/24) Epigastric pain (02/11/24) Nausea with vomiting, unspecified (02/11/24) Subjective Subjective Patient was seen and examined today, he underwent cholecystectomy today, he was having postop pain when I saw him earlier this afternoon. Objective Data Objective Data Vital Signs: Vital Signs Temp Pulse Resp BP Pulse Ox O2 Del Method 97.1 F L 73 16 138/74 H 99 Room Air 02/12/24 11:05 02/12/24 11:05 02/12/24 11:05 02/12/24 11:05 02/12/24 11:05 02/12/24 11:05 Oxygen Delivery Method Room Air Weight: 101 kg Body Mass Index (BMI) 31.1 Intake & Output: Intake and Output for Last 24 Hours 02/10/24 02/11/24 02/12/24 23:59 23:59 23:59 Intake Total 2666.25 / 2666.25 3760 / 3760 Balance 2666.25 / 2666.25 3760 / 3760 Lab / Micro Data 02/12/24 06:35 02/12/24 06:35 Labs: Laboratory Results - last 24 hr 02/12/24 06:35: WBC 8.9, RBC 4.43 L, Hgb 13.1, Hct 39.6 L, MCV 89.4, MCH 29.6, MCHC 33.1, RDW Std Deviation 41.9, RDW Coeff of Yoly 12.8, Plt Count 258, MPV 9.2, Immature Gran % (Auto) 0.400, Neut % (Auto) 75.2 H, Lymph % (Auto) 15.2 L, [place] % (Auto) 8.0, Eos % (Auto) 1.1, Baso % (Auto) 0.1, Absolute Neuts (auto) 6.7, Absolute Lymphs (auto) 1.36, Nucleated RBC % 0, Sodium 140, Potassium 3.7, Chloride 111 H, Carbon Dioxide 26.0, Anion Gap 3 L, BUN 8, Creatinine 0.89, Estim Creat Clear Calc 143.22, Est GFR (MDRD) Af Amer 128, Est GFR (MDRD) Non-Af 106, BUN/Creatinine Ratio 9.0 L, Glucose 98, Calcium 8.3 L, Total Bilirubin 0.80, AST 80 H, ALT 301 H, Alkaline Phosphatase 124 H, Total Protein 6.2 L, Albumin 3.0 L, Globulin 3.2, Albumin/Globulin Ratio 0.9, Lipase 265 H Radiography Diagnostic Testing: Radiology Impression Endo Retro Cholangiopancreatogram 02/11/24 16:00 IMPRESSION: Fluoroscopic guided ERCP Electronically Signed: Venkatesh Calvillo MD at 18:20 EDT , Cholangiogram 02/12/24 08:45 IMPRESSION: Unremarkable intraoperative cholangiogram. Electronically Signed: Esteban Majano MD at 11:00 EDT , Physical Exam Const alert, oriented x3, no apparent distress and healthy appearing General Appearance: cooperative, well kempt and well developed Orientation / Consciousness: awake, oriented to person, oriented to place and oriented to time HEENT normocephalic, head/scalp atraumatic and moist oral mucous membranes Eyes PERRL, EOMs intact bilaterally and conjunctivae normal Neck supple, no JVD and thyroid normal General: trachea midline Resp normal respiratory effort, no retractions, no use of accessory muscles and clear to auscultation bilaterally Auscultation: Negative for rales, rhonchi or wheezes Cardio regular rate, regular rhythm, S1 normal heart sound, S2 normal heart sound, no murmurs, no rub and no gallops Extremity no clubbing, cyanosis or edema Skin no rashes or lesions noted General Skin Exam: no breakdown Neuro oriented x3, CN's II-XII intact bilaterally, moves all extremities, no focal motor deficits and no sensory deficits noted Sensorium / Orientation: awake and alert Speech: speech normal Psych affect normal Assessment & Plan Assessment/Plan (1) Nausea and vomiting: QUALIFIERS: Vomiting type: unspecified Qualified Code(s): R11.2 - Nausea with vomiting, unspecified PLAN: Plan 1. Acute gallstone pancreatitis-status post ERCP with removal of choledocholithiasis, status post cholecystectomy today-continue present medications #2 acute cholecystitis-status post laparoscopic cholecystectomy with cholangiograms-postop day 0, continue present care Total clinical time spent by myself addressing the patient's medical issues, reviewing all of his data, and collaborating with patient's care team: 25 minutes Charges/Coding Visit Charges Inpatient E&M: [id number] [facility] L1
[2024-02-13] MEDS: oxyCODONE 5 MG Tablet PO ×2 (03:09→08:23)
[2024-02-13] MEDS: Acetaminophen 325 MG Tablet 650 MG PO ×2 (03:10→08:24)
[2024-02-13 03:16] VITALS: BP 153/89; PULSE 58; RESP 16; TEMP 37.1; O2SAT 97
[2024-02-13 04:53] VITALS: BMI 33.5
--- NOTE | 2024-02-13 07:11 | PCM.PN.SRG ---
Subjective Subjective Patient reports tolerating diet Pain is well-controlled. Objective Data Objective Data Vital Signs: Vital Signs Temp Pulse Resp BP Pulse Ox O2 Del Method 98.7 F 58 L 16 153/89 H 97 Room Air 02/13/24 03:16 02/13/24 03:16 02/13/24 03:16 02/13/24 03:16 02/13/24 03:16 02/13/24 03:16 Oxygen Delivery Method Room Air Weight: 239 lb 3.225 oz Body Mass Index (BMI) 33.5 Intake & Output: Intake and Output for Last 24 Hours 02/11/24 02/12/24 02/13/24 23:59 23:59 23:59 Intake Total 2666.25 / 2666.25 4730 / 4730 Balance 2666.25 / 2666.25 4730 / 4730 Lab / Micro Data 02/12/24 06:35 02/12/24 06:35 Labs: Laboratory Results - last 24 hr 02/12/24 06:35: Sodium 140, Potassium 3.7, Chloride 111 H, Carbon Dioxide 26.0, Anion Gap 3 L, BUN 8, Creatinine 0.89, Estim Creat Clear Calc 143.22, Est GFR (MDRD) Af Amer 128, Est GFR (MDRD) Non-Af 106, BUN/Creatinine Ratio 9.0 L, Glucose 98, Calcium 8.3 L, Total Bilirubin 0.80, AST 80 H, ALT 301 H, Alkaline Phosphatase 124 H, Total Protein 6.2 L, Albumin 3.0 L, Globulin 3.2, Albumin/Globulin Ratio 0.9, Lipase 265 H Radiography Diagnostic Testing: Radiology Impression Cholangiogram 02/12/24 08:45 IMPRESSION: Unremarkable intraoperative cholangiogram. Electronically Signed: Esteban Majano MD at 11:00 EDT , Physical Exam Const oriented x3 and no apparent distress GI normal to inspection, nondistended, normoactive bowel sounds Assessment & Plan Assessment/Plan (1) Acute gallstone pancreatitis: PLAN: Patient is doing well after laparoscopic cholecystectomy for gallstone pancreatitis. Plan for discharge today. Follow-up in 2 weeks. Lamine Davis MD Pager: [facility] [address] [place] [address], [address] [place] [address] Office:
--- NOTE | 2024-02-13 07:13 | DS.PCM_ITS ---
Providers Date of Admission: 02/11/24 Primary Care Physician: Dr. Wilberto Watts MD Consultations 02/11/24 05:37 Consult: Gastroenterology Routine Consulting Provider: Akshat Garcia Reason for Consult: Acute Gallstone Pancreatitis with Acute Cholecystitis. EMERGENT Consult: No Notified: Yes Date Notified: 02/11/24 Time Notified: 06:40 Method of Notification: Text Consult: General Surgery Routine Consulting Provider: Kalpana Ohara Reason for Consult: Acute Cholecystitis with Acute Gallstone Pancreatitis. EMERGENT Consult: No Notified: Yes Date Notified: 02/11/24 Time Notified: 06:40 Method of Notification: Text Reason For Visit: ACUTE CHOLECYSTITIS WITH GALLSTONE PANCREATITIS Diagnosis Discharge Diagnosis (1) Acute gallstone pancreatitis: Status: Acute Code(s): K85.10 - Biliary acute pancreatitis without necrosis or infection Plan: Patient is doing well after laparoscopic cholecystectomy for gallstone pancreatitis. Plan for discharge today. Follow-up in 2 weeks. Lamine Davis MD Pager: [facility] [address] [place] [address] [place] [address] Office: Medications at Discharge Home Medications dextroamphetamine-amphetamine 20 mg tablet (Adderall) 20 mg PO DAILY 02/06/24 trazodone 100 mg tablet 100 mg PO QHS 02/09/24 ondansetron 4 mg disintegrating tablet 4 mg PO TID PRN nausea and vomiting #21 tabs 02/10/24 oxycodone 5 mg tablet 5 - 10 mg (1 - 2 x 5 mg) PO Q4H PRN PRN Pain Score 4-10 5 days #20 tabs 02/13/24 Hospital Course Operations cholecystecomy and ERCP Summary of Care Provided Hospital Course: Patient was admitted from the emergency room with gallstone pancreatitis. Following day he was taken for ERCP. Stone was removed from the duct and the stents were placed. The following day he was taken for laparoscopic cholecystectomy which he tolerated well. Today he is tolerating a diet and he will be discharged home. Weight / BMI Weight Weight: 239 lb 3.225 oz Body Mass Index (BMI) 33.5 ABG / Lab / Microbiology Data 02/12/24 06:35 02/12/24 06:35 Laboratory: Laboratory Results - last 24 hr 02/12/24 06:35: Sodium 140, Potassium 3.7, Chloride 111 H, Carbon Dioxide 26.0, Anion Gap 3 L, BUN 8, Creatinine 0.89, Estim Creat Clear Calc 143.22, Est GFR (MDRD) Af Amer 128, Est GFR (MDRD) Non-Af 106, BUN/Creatinine Ratio 9.0 L, Glucose 98, Calcium 8.3 L, Total Bilirubin 0.80, AST 80 H, ALT 301 H, Alkaline Phosphatase 124 H, Total Protein 6.2 L, Albumin 3.0 L, Globulin 3.2, Albumin/Globulin Ratio 0.9, Lipase 265 H Radiography Diagnostic Testing: Radiology Impression Cholangiogram 02/12/24 08:45 IMPRESSION: Unremarkable intraoperative cholangiogram. Electronically Signed: Esteban Majano MD at 11:00 EDT Reading Location ID and State: [facility] / [place] , Service support , D/C Instructions Discharge Diet: Light diet - advance as tolerated Discharge Activity: May Not Drive (for 2-3 days or while taking narcotic pain medications.) and - (Do not drive, work heavy equipment or sign legal documents for 24 hours.) May shower in (days): 1 Lifting Restrictions: 20 lbs for 2 weeks Additional Activity Instructions: Pain medication may cause nausea. You should typically eat light foods as you take your pain medications. Pain medication may also cause constipation. If this is a problem for you, please discuss with your doctor. Call your doctor if your incision/area has: Continuous Slow Oozing, Sudden Increased Bleeding, Increased Pain/ Swelling, Increased Redness and Foul Smelling Discharge Call your doctor if you observe: Fever of 101 or Higher Suture Line Care: Avoid Pulling/Pushing and Avoid Pinching/Bending Remove Dressing in: 2 days Additional Dressing/Incision Instructions: Leave operative bandaids on for 2 days. When you remove dressing, leave Steri-Strips on until your follow-up appointment, or until the Steri-Strips fall off on their own. Additional Instructions: Call Dr. Garcia's office to follow-up to schedule stent removal. Alternate ibuprofen and Tylenol for pain control, oxycodone for breakthrough pain. Please Follow Up With: Lamine Davis MD When: Please call to schedule 2 week follow up appointment. [phone] Meaningful Use Info Meaningful Use Meaningful Use Diagnoses (Choose all that apply): None applicable Ischemic Stroke Statin Dosing Therapy Reference: STATIN DOSE THERAPY REFERENCE: * Patients > 75 years receive moderate or high dose statin therapy. * Patients 75 years or YOUNGER should receive HIGH intensity statin dose unless contraindicated. You will be required to document reason for non-treatment if statin daily dose does not meet guidelines. HIGH DOSE STATIN THERAPY DAILY Atorvastatin > than or = to 40 mg Rosuvastatin > than or = to 20 mg Amlodipine + Atorvastatin > than or = to 2.5/40 mg Ezetimibe + Simvastatin 10/80 mg Simvastatin 80mg Discharge Plan Admission Admit Date/Time: 02/11/24 04:51 Attending Provider: Geremias Foley Primary Care Provider: Wilberto Watts Consulting Providers: Akshat Garcia; Kalpana Ohara; Leland Franks Instructions Patient Instructions: ED Gallstones with Biliary Colic Additional Instructions / Restrictions: [place] diet. Motrin Tylenol for pain. Return if worsening pain, fever or intractable vomiting. Otherwise keep your appointment for the surgery on . Discharge Orders/Prescriptions Prescriptions: New oxycodone 5 mg Tablet 5 - 10 mg PO Q4H PRN PRN (Reason: Pain Score 4-10) 5 Days Qty: 20 0RF Continued dextroamphetamine-amphetamine [Adderall] 20 mg tablet 20 mg PO DAILY trazodone 100 mg tablet 100 mg PO QHS ondansetron 4 mg tablet,disintegrating 4 mg PO TID PRN (Reason: nausea and vomiting) Qty: 21 0RF Discontinued oxycodone-acetaminophen [Percocet] 5-325 mg tablet 1 tab PO Q6H PRN (Reason: pain) 3 Days Qty: 12 0RF Referrals / Follow Up: Lamine Davis MD [Med Staff - Active Staff] - Keep Kerry appointment Wilberto Watts MD [Primary Care Provider] - Disposition Disposition (needs filled in before D/C Order can be placed): Home, Self Care
[2024-02-13 08:20] VITALS: BP 131/96; PULSE 65; RESP 16; TEMP 36.8; O2SAT 100
--- NOTE | 2024-02-13 10:31 | DCINST_ITS ---
Discharge Instructions Diet Discharge Diet: Light diet - advance as tolerated Activity Discharge Activity: Return to Normal Activity May shower in (days): 1 Weight Bearing Status: Full weight bearing Additional Activity Instructions:: Pain medication may cause nausea. You should typically eat light foods as you take your pain medications. Pain medication may also cause constipation. If this is a problem for you, please discuss with your doctor. Dressing / Incision Call your doctor if your incision/area has: Continuous Slow Oozing, Sudden Increased Bleeding, Increased Pain/ Swelling, Increased Redness and Foul Smelling Discharge Call your doctor if you observe: Fever of 101 or Higher Suture Line Care: Avoid Pulling/Pushing and Avoid Pinching/Bending Additional Dressing/Incision Instructions:: Leave operative bandaids on for 2 days. When you remove dressing, leave Steri-Strips on until your follow-up appointment, or until the Steri-Strips fall off on their own. Follow Up Care Please Follow Up With: Lamine Davis MD Test Results: Test results from this visit will be discussed in further detail at your follow- up appointment, if applicable. Discharge Plan Admission Admit Date/Time: 02/11/24 04:51 Primary Reason for Your Visit: cholecystitis Attending Provider: Geremias Foley Primary Care Provider: Wilberto Watts Consulting Providers: Akshat Garcia; Kalpana Ohara; Leland Franks Instructions Patient Instructions: ED Gallstones with Biliary Colic Additional Instructions / Restrictions: [place] diet. Motrin Tylenol for pain. Return if worsening pain, fever or intractable vomiting. Otherwise keep your appointment for the surgery on . Discharge Orders/Prescriptions Prescriptions: New oxycodone 5 mg Tablet 5 - 10 mg PO Q4H PRN PRN (Reason: Pain Score 4-10) 5 Days Qty: 20 0RF Continued dextroamphetamine-amphetamine [Adderall] 20 mg tablet 20 mg PO DAILY trazodone 100 mg tablet 100 mg PO QHS ondansetron 4 mg tablet,disintegrating 4 mg PO TID PRN (Reason: nausea and vomiting) Qty: 21 0RF Discontinued oxycodone-acetaminophen [Percocet] 5-325 mg tablet 1 tab PO Q6H PRN (Reason: pain) 3 Days Qty: 12 0RF Referrals / Follow Up: Lamine Davis MD [Med Staff - Active Staff] - Keep Kerry appointment Wilberto Watts MD [Primary Care Provider] - Disposition Disposition (needs filled in before D/C Order can be placed): Home, Self Care
--- NOTE | 2024-02-13 10:33 | PCM.DC.SUM ---
Providers Date of Admission: 02/11/24 Date of Discharge: 02/13/24 Primary Care Physician: Dr. Wilberto Watts MD Consultations 02/11/24 05:37 Consult: Gastroenterology Routine Consulting Provider: Akshat Garcia Reason for Consult: Acute Gallstone Pancreatitis with Acute Cholecystitis. EMERGENT Consult: No Notified: Yes Date Notified: 02/11/24 Time Notified: 06:40 Method of Notification: Text Consult: General Surgery Routine Consulting Provider: Kalpana Ohara Reason for Consult: Acute Cholecystitis with Acute Gallstone Pancreatitis. EMERGENT Consult: No Notified: Yes Date Notified: 02/11/24 Time Notified: 06:40 Method of Notification: Text Reason For Visit: ACUTE CHOLECYSTITIS WITH GALLSTONE PANCREATITIS Diagnosis Discharge Diagnosis (1) Acute gallstone pancreatitis: Status: Inactive Code(s): K85.10 - Biliary acute pancreatitis without necrosis or infection Plan 1. Acute gallstone pancreatitis-status post ERCP with removal of choledocholithiasis, status post cholecystectomy today-continue present medications #2 acute cholecystitis-status post laparoscopic cholecystectomy with cholangiograms-postop day 0, continue present care #3 cholestatic hepatitis Total clinical time spent by myself addressing the patient's medical issues, reviewing all of his data, and collaborating with patient's care team: 25 minutes Medications at Discharge Home Medications dextroamphetamine-amphetamine 20 mg tablet (Adderall) 20 mg PO DAILY 02/06/24 trazodone 100 mg tablet 100 mg PO QHS 02/09/24 ondansetron 4 mg disintegrating tablet 4 mg PO TID PRN nausea and vomiting #21 tabs 02/10/24 oxycodone 5 mg tablet 5 - 10 mg (1 - 2 x 5 mg) PO Q4H PRN PRN Pain Score 4-10 5 days #20 tabs 02/13/24 Hospital Course Operations ERCP (With removal of common bile duct stones) and - (Laparoscopic cholecystectomy) Procedures None Summary of Care Provided Minutes Spent on Discharge: 31 Hospital Course: This 33-year-old white male was seen in the emergency room at [facility] with complaints of abdominal pain and nausea and vomiting. Patient had recently been diagnosed with gallstones and was due to have an outpatient cholecystectomy done on 02/12/2024. Workup in the emergency room showed a normal white blood cell count, bilirubin was elevated at 2.2, AST was elevated to 85, ALT was elevated at 576 and alkaline phosphatase was 152. Patient's lipase was elevated over 5000. Patient was admitted to [place] [id number] for acute pancreatitis felt to be secondary to gallstones, he was seen in consultation by gastroenterology who performed an ERCP with removal of several gallstones. The following day the patient underwent a laparoscopic cholecystectomy without complications. On 02/13/2024, patient was seen and examined: On examination he appeared in good health and spirits. Vital signs as documented. Skin warm and dry and without overt rashes. Neck without JVD, neck was supple, trachea midline, thyroid was normal. Lungs clear bilaterally, normal air movement was noted. Heart exam notable for regular rhythm, normal sounds and absence of murmurs, rubs or gallops. Abdomen unremarkable and without evidence of organomegaly, masses, or abdominal aortic enlargement. Bowel sounds are present, abdomen is not distended. Extremities nonedematous, no cyanosis was noted, no clubbing was noted. Neuro: Cranial nerves II through XII are grossly intact, no focal motor deficits were noted, sensation to light touch and pinprick intact, motor exam 5/5 throughout. Psych: Patient is alert and oriented x3, he does not appear anxious or depressed, he does not appear agitated. Patient appears stable for discharge home on 02/13/2024. Weight / BMI Weight Weight: 108.5 kg Body Mass Index (BMI) 33.5 ABG / Lab / Microbiology Data 02/12/24 06:35 02/12/24 06:35 Radiography Diagnostic Testing: Radiology Impression Cholangiogram 02/12/24 08:45 IMPRESSION: Unremarkable intraoperative cholangiogram. Electronically Signed: Esteban Majano MD at 11:00 EDT , D/C Instructions Discharge Diet: Light diet - advance as tolerated May shower in (days): 1 Weight Bearing Status: Full weight bearing Additional Activity Instructions: Pain medication may cause nausea. You should typically eat light foods as you take your pain medications. Pain medication may also cause constipation. If this is a problem for you, please discuss with your doctor. Call your doctor if your incision/area has: Continuous Slow Oozing, Sudden Increased Bleeding, Increased Pain/ Swelling, Increased Redness and Foul Smelling Discharge Call your doctor if you observe: Fever of 101 or Higher Suture Line Care: Avoid Pulling/Pushing and Avoid Pinching/Bending Additional Dressing/Incision Instructions: Leave operative bandaids on for 2 days. When you remove dressing, leave Steri-Strips on until your follow-up appointment, or until the Steri-Strips fall off on their own. Additional Instructions: Call Dr. Garcia's office to follow-up to schedule stent removal. Alternate ibuprofen and Tylenol for pain control, oxycodone for breakthrough pain. Please Follow Up With: Lamine Davis MD When: Please call to schedule 2 week follow up appointment. [phone] Meaningful Use Info Meaningful Use Meaningful Use Diagnoses (Choose all that apply): None applicable Ischemic Stroke Statin Dosing Therapy Reference: STATIN DOSE THERAPY REFERENCE: * Patients > 75 years receive moderate or high dose statin therapy. * Patients 75 years or YOUNGER should receive HIGH intensity statin dose unless contraindicated. You will be required to document reason for non-treatment if statin daily dose does not meet guidelines. HIGH DOSE STATIN THERAPY DAILY Atorvastatin > than or = to 40 mg Rosuvastatin > than or = to 20 mg Amlodipine + Atorvastatin > than or = to 2.5/40 mg Ezetimibe + Simvastatin 10/80 mg Simvastatin 80mg Discharge Plan Admission Admit Date/Time: 02/11/24 04:51 Primary Reason for Your Visit: cholecystitis Attending Provider: Geremias Foley Primary Care Provider: Wilberto Watts Consulting Providers: Akshat Garcia; Kalpana Ohara; Leland Franks Instructions Patient Instructions: ED Gallstones with Biliary Colic Additional Instructions / Restrictions: [place] diet. Motrin Tylenol for pain. Return if worsening pain, fever or intractable vomiting. Otherwise keep your appointment for the surgery on . Discharge Orders/Prescriptions Prescriptions: New oxycodone 5 mg Tablet 5 - 10 mg PO Q4H PRN PRN (Reason: Pain Score 4-10) 5 Days Qty: 20 0RF Continued dextroamphetamine-amphetamine [Adderall] 20 mg tablet 20 mg PO DAILY trazodone 100 mg tablet 100 mg PO QHS ondansetron 4 mg tablet,disintegrating 4 mg PO TID PRN (Reason: nausea and vomiting) Qty: 21 0RF Discontinued oxycodone-acetaminophen [Percocet] 5-325 mg tablet 1 tab PO Q6H PRN (Reason: pain) 3 Days Qty: 12 0RF Referrals / Follow Up: Lamine Davis MD [Med Staff - Active Staff] - Keep Kerry appointment Wilberto Watts MD [Primary Care Provider] - Disposition Disposition (needs filled in before D/C Order can be placed): Home, Self Care Charges/Coding Visit Charges Inpatient E&M: 16971 Disch Hosp >30min
[2024-02-13 11:21] VITALS: BP 131/96; PULSE 65; RESP 16; TEMP 36.8; O2SAT 100
== END 2024-02-13 11:20 | disposition home or self-care (01) | DRG 417 ==
LOC: ED 02:07 → MS3 04:21
PROVIDERS: Internal Medicine Gastroenterology; Surgery; Admitting Provider Internal Medicine; Emergency Provider Emergency Medicine; PCP Family Medicine; Visit Provider Internal Medicine
PROC: 0FC98ZZ Extirpation of Matter from Common Bile Duct, Via Natural or Artificial Opening Endoscopic (ICD-10-PCS; CPT 43260; principal; 2024-02-11 14:45)
PROC: 0FT44ZZ Resection of Gallbladder, Percutaneous Endoscopic Approach (ICD-10-PCS; CPT 47610; principal; 2024-02-12 08:30)
DX: K80.62 Calculus of gallbladder and bile duct with acute cholecystitis without obstruction (principal); K85.10 Biliary acute pancreatitis without necrosis or infection; K75.89 Other specified inflammatory liver diseases; F41.9 Anxiety disorder, unspecified
CPT/HCPCS: 36415; 74177; 74300; 74330; 76000; 80053; 83690; 83735; 84100; 84443; 85025; 88304; 93005; 94668; 99283; J7030; J7120; Q9967; A4216; J2405

== ENCOUNTER 2024-03-26 12:21 | Day surgery (SDC) | payer OTHER, SELFPAY ==
[2024-03-26] VITALS (14 sets, daily range): BP systolic 123–136; BP diastolic 73–99; PULSE 63–84; RESP 16; TEMP 36.1–36.6; O2SAT 92–100; BMI 34.2
--- NOTE | 2024-03-26 12:31 | EKG12_ITS ---
Test Reason : PREOP Blood Pressure : / mmHG Vent. Rate : 063 BPM Atrial Rate : 063 BPM P-R Int : 168 ms QRS Dur : 094 ms QT Int : 404 ms P-R-T Axes : -24 002 013 degrees QTc Int : 413 ms Normal sinus rhythm Normal ECG No previous ECGs available Confirmed by Tigre Aguayo ([id number]), news videotape editor ALEJANDRA HADLEY ([id number]) on 03/31/2024 2:02:26 PM Referred By: Kavon Watts Confirmed By:Tigre Aguayo
--- NOTE | 2024-03-26 12:56 | PRE.ANES_ITS ---
ASA Classification* ASA Classification ASA Classification: 2 Assessment & Plan Anesthesia* Anesthesia Assessment Anesthesia Assessment: Discussed sedation and/or anesthesia options, risks, benefits, and alternatives with patient/parents/legal guardian/POA. Questions invited. The patient/parents/legal guardian/POA seems to understand and agrees to proceed with anesthesia plan. Reviewed the physical assessment, medical history, allergy history and patient home medications list prior to surgery/procedure/anesthetic and documented any changes. Performed airway and anesthesia risk assessments. Anesthesia Type Anesthesia Type: MAC Anesthesia Focused Assessment* Temperature: 97.8 F Pulse Rate: 63 Blood Pressure: 126/79 Respiratory Rate: 16 Pulse Ox: 100 Airway Assessment Mouth opens: >3 cm Mallampati Score: II Focused Labs Anesthesia Preop lab: CBC WBC 8.9 K/mm3 (4.4-11.0) 02/12/24 06:35 RBC 4.43 M/mm3 (4.6-6.2) L 02/12/24 06:35 Hgb 13.1 g/dL (13.0-16.5) 02/12/24 06:35 Hct 39.6 % (40-54) L 02/12/24 06:35 Plt Count 258 K/mm3 (150-450) 02/12/24 06:35 CHEMISTRY Potassium 3.7 mmol/L (3.5-5.1) 02/12/24 06:35 Sodium 140 mmol/L (136-145) 02/12/24 06:35 Magnesium 2.0 mg/dL (1.6-2.6) 02/11/24 01:20 Phosphorus 3.7 mg/dL (2.5-4.9) 02/11/24 01:20 BUN 8 mg/dL (7-18) 02/12/24 06:35 Creatinine 0.89 mg/dL (0.70-1.30) 02/12/24 06:35 Glucose 98 mg/dL (74-106) 02/12/24 06:35 TSH 1.190 uIU/mL (0.358-3.740) 02/11/24 01:20 COAG Pre-Assessment Diagnosis/Proposed Procedure Planned Operative Procedure(s): ERCP, Stent Removal Anesthesia History 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 When Was Last Pacemaker Check QUESTION #4 FULL TEXT: You/Your Family Experience fever (hyperthermia) with Anesthesia Last Oral Intake Last Oral intake: Last Oral Intake NPO since Meds taken in AM with sips of water? Meds patient instructed to take am of surgery PONV PONV - florist helper: PONV - florist helper Female No 03/23/24 13:34 HX of Motion Sickness No 03/23/24 13:34 HX of N/V After Surgery No 03/23/24 13:34 Non-Smoker Yes 03/23/24 13:34 Duration of Surgery greater No 03/23/24 13:34 than 60 minutes Number of Risk Factors 1 03/23/24 13:34 PONV Score Low Risk 03/23/24 13:34 Height & Weight Height & Weight: Anesthesia: Height & Weight Height 5 ft 7 in 03/26/24 12:39 Weight: 99.1 kg 03/26/24 12:39 Body Mass Index (BMI) 34.2 03/26/24 12:39 Respiratory Assessment Respiratory Assessment - florist helper: Respiratory Tract Infection Hx - florist helper Hx Respiratory Tract Infection No 03/23/24 13:34 STOP Sleep Apnea STOP Sleep Apnea - florist helper: STOP Sleep Apnea - florist helper Hx Hypertension No 03/23/24 13:34 Hx Sleep Apnea No 03/23/24 13:34 CPAP BIPAP Do you snore loudly (louder No 03/23/24 13:34 than talking or can be heard Do you often feel tired/ No 03/23/24 13:34 fatigued/ sleepy during daytime? Has anyone observed you stop No 03/23/24 13:34 breathing during sleep? STOP Results Negative 03/23/24 13:34 QUESTION #5 FULL TEXT : Do you snore loudly (louder than talking or can be heard through closed doors)? Tobacco Use History Tobacco Use History - florist helper: Tobacco Use History - florist helper Tobacco Use Smoking Status Never smoker 03/23/24 13:34 Hx Tobacco Use No 03/23/24 13:34 Years Smoking Packs Smoked per Day Smoking Cessation Date was within the last 15 years Hx Smoking Cessation Date Hx Smoking Cessation Counseling Hematologic Medial History Hematologic Hx - florist helper: Hematologic Medical Hx - hse coordinator Hx of Blood Transfusion No 03/23/24 13:34 Hx of Transfusion in last 3 No 03/23/24 13:34 Months Date of Last Transfusion (if within last 3 months) Ever experience any problems No 03/23/24 13:34 with transfusion(s)? Specify any problems Hx of Preganancy in last 3 N/A 03/23/24 13:34 Months Nurse Filling Out Transfusion VCHRISTIN 03/23/24 13:34 & Questions: Date: 03/23/24 03/23/24 13:34 Time: 13:35 03/23/24 13:34 Patient unable to answer at this time (ie. confused, unrespo /Reproduction History /Reproductive History - florist helper: /Reproductive Hx- florist helper Hx Now No 03/23/24 13:34 Gestational Age (in weeks): EDC: Hx Hx Para Hx Section SAB No 03/23/24 13:34 PFSH Medical History Acute gallstone pancreatitis Alcohol use History of steroid therapy Fatty liver Back pain Non-smoker Gastroenteritis Impacted cerumen of both ears Anxiety Physical exam, pre-employment Home Medications ?Medication ?Instructions ?Recorded ?Last Taken ?Type dextroamphetamine-amphetamine 20 20 mg PO BID 02/06/24 Unknown History mg tablet (Adderall) trazodone 100 mg tablet 100 mg PO QHS 02/09/24 Unknown History Allergy/AdvReac Type Severity Reaction Status Date / Time No Known Allergies Allergy Verified 03/26/24 12:38 Surgical History History of laparoscopic cholecystectomy History of ERCP Hx of wisdom tooth extraction Social History Smoking Status: Never smoker alcohol intake: current substance use type: does not use Review of Systems (Anesthesia) ROS Narrative System reviewed and no additional complaints, except as documented.
--- NOTE | 2024-03-26 14:55 | RAD_ITS ---
EXAM: [place] CHOLANGIOGRAPHY AND/OR PANCREATOGRAPHY CLINICAL INDICATION: PAIN TECHNIQUE: 8 fluoroscopic spot views of the right upper quadrant obtained during ERCP. Fluoroscopic guidance was provided. COMPARISON: No relevant prior studies available. FINDINGS: Contrast outlines multiple round filling defects within the common bile duct which may represent air bubbles and/or common bile duct stones. Common bile duct is normal in caliber. See operative note for additional information. 73 seconds of fluoroscopy utilized. Total radiation dose of 13.9 mGy. RAD/ERCP Biliary/Pancreas IMPRESSION: As above. Electronically Signed: Bakari Pederson MD at 15:37 EDT ,
--- NOTE | 2024-03-26 15:20 | PCM.POST.ANE ---
Anesthesia: Postop Eval I Current Vital Signs Temperature: 97 F Pulse Rate: 74 Blood Pressure: 127/73 Respiratory Rate: 16 Pulse Ox: 96 Assessment Airway patent: Yes Spontaneous unlabored respirations: Yes nausea: No Vomiting: No Anesthesia Complication: No Fluid Hydration Crystalloid volume administer (ml): 20 Total IV fluid infused: 20 Progress Note Anesthesia document: Postop Eval 1 completed: Yes
--- NOTE | 2024-03-26 15:31 | OP.ERCP_ITS ---
Patient Name: Pratik Dasilva Procedure Date: 03/26/2024 2:38 PM Date of : 1990 Age: 33 Procedure: ERCP Indications: Bile duct stone(s), Biliary stent removal, Pancreatic stent removal Providers: Akshat Garcia DO Referring MD: Javier Watts Medicines: Monitored Anesthesia Care Patient Profile: This is a 33 year old male. Refer to note in patient chart for documentation of history and physical. Patient has symptoms of chronic right upper quadrant abdominal pain. He is status post laparoscopic cholecystectomy within the past three months. Complications: No immediate complications. Procedure: Pre-Anesthesia Assessment: - Prior to the procedure, a History and Physical was performed, and patient medications and allergies were reviewed. The patient is competent. The risks and benefits of the procedure and the sedation options and risks were discussed with the patient. All questions were answered and informed consent was obtained. Patient identification and proposed procedure were verified by the physician in the pre-procedure area. Mental Status Examination: alert and oriented. Airway Examination: normal oropharyngeal airway and neck mobility. Respiratory Examination: clear to auscultation. CV Examination: normal. Prophylactic Antibiotics: The patient does not require prophylactic antibiotics. Prior Anticoagulants: The patient has taken no anticoagulant or antiplatelet agents except for NSAID medication. ASA Grade Assessment: II - A patient with mild systemic disease. After reviewing the risks and benefits, the patient was deemed in satisfactory condition to undergo the procedure. The anesthesia plan was to use monitored anesthesia care (MAC). Immediately prior to administration of medications, the patient was re-assessed for adequacy to receive sedatives. The heart rate, respiratory rate, oxygen saturations, blood pressure, adequacy of pulmonary ventilation, and response to care were monitored throughout the procedure. The physical status of the patient was re-assessed after the procedure. After obtaining informed consent, the scope was passed under direct vision. Throughout the procedure, the patient's blood pressure, pulse, and oxygen saturations were monitored continuously. The Duodenoscope was introduced through the mouth, and advanced to the duodenum and used to inject contrast into the bile duct and ventral pancreatic duct. The ERCP was accomplished without difficulty. The patient tolerated the procedure well. Scope In: 3:04:13 PM Scope Out: 3:17:13 PM Total Procedure Duration Time 0 hours 13 minutes 0 seconds Findings: The animal tech film was normal. The esophagus was successfully intubated under direct vision. The scope was advanced to a normal major papilla in the descending duodenum without detailed examination of the pharynx, larynx and associated structures, and upper GI tract. The upper GI tract was grossly normal. The ventral pancreatic duct was deeply cannulated with the short-nosed traction sphincterotome. Contrast was injected. I personally interpreted the pancreatic duct images. There was brisk flow of contrast through the ducts. Image quality was adequate. Contrast extended to the pancreatic duct. Opacification of the entire pancreatic ductal system was successful. The maximum diameter of the ducts was 2 mm. The entire opacified area was normal. A long 0.025 inch Jagwire was passed into the ventral pancreatic duct. A 2 mm ventral pancreatic sphincterotomy was made with a traction (standard) sphincterotome using ERBE electrocautery. There was no post-sphincterotomy bleeding. To find object(s) the ventral pancreatic duct was swept with a 6 mm balloon starting at the pancreatic duct in the body of the pancreas. Debris was swept from the duct. One stent was removed from the pancreatic duct using a snare and sent for cytology. One stent was removed from the common hepatic duct using a snare and sent for cytology. A long 0.025 inch Jagwire was passed into the biliary tree. The short-nosed traction sphincterotome was passed over the guidewire and the bile duct was then deeply cannulated. Contrast was injected. Opacification of the entire biliary tree was successful. The maximum diameter of the ducts was 10 mm. The upper third of the main bile duct contained one stone, which was 6 mm in diameter. The entire biliary tree was diffusely dilated, with a stone causing an obstruction. The largest diameter was 10 mm. A cholecystectomy had been performed. A 5 mm biliary sphincterotomy was made with a traction (standard) sphincterotome using ERBE electrocautery. There was no post-sphincterotomy bleeding. The biliary tree was swept with a 12 mm balloon starting at the bifurcation. Sludge was swept from the duct. All stones were removed. Impression: - The entire biliary tree was dilated, with a stone causing an obstruction. - The patient has had a cholecystectomy. - Choledocholithiasis was found. Complete removal was accomplished by biliary sphincterotomy and balloon extraction. - A pancreatic sphincterotomy was performed. - The ventral pancreatic duct was swept and debris was found. - One stent was removed from the pancreatic duct. - One stent was removed from the common hepatic duct. - A biliary sphincterotomy was performed. - The biliary tree was swept. Procedure Code(s): --- Professional --- 10951, Endoscopic retrograde cholangiopancreatography (ERCP); with removal of foreign body(s) or stent(s) from biliary/pancreatic duct(s) 52722, Endoscopic retrograde cholangiopancreatography (ERCP); with removal of calculi/debris from biliary/pancreatic duct(s) 64112, Endoscopic retrograde cholangiopancreatography (ERCP); with sphincterotomy/papillotomy 67914, Endoscopic retrograde cholangiopancreatography (ERCP); with sphincterotomy/papillotomy 21588, 26, Endoscopic catheterization of the pancreatic ductal system, radiological supervision and interpretation CPT copyright 2021 [employer]. All rights reserved. The codes documented in this report are preliminary and upon site director review may be revised to meet current compliance requirements. Akshat Garcia DO 03/26/2024 3:30:24 PM This report has been signed electronically. Number of Addenda: 0 Note Initiated On: 03/26/2024 2:38 PM
--- NOTE | 2024-03-26 15:31 | OP.CCLET_ITS ---
03/26/2024 Javier Watts [address] [place] [address] Re : ERCP procedure for Pratik Dasilva Dear Dr. Watts This procedure was performed on Tuesday, March 26, 2024. My impressions and recommendations are as follows: Impressions : - The entire biliary tree was dilated, with a stone causing an obstruction. - The patient has had a cholecystectomy. - Choledocholithiasis was found. Complete removal was accomplished by biliary sphincterotomy and balloon extraction. - A pancreatic sphincterotomy was performed. - The ventral pancreatic duct was swept and debris was found. - One stent was removed from the pancreatic duct. - One stent was removed from the common hepatic duct. - A biliary sphincterotomy was performed. - The biliary tree was swept. Recommendations : My findings are described in the full procedure note, which is enclosed. If I can be of further assistance, please feel free to contact me at . Sincerely, Akshat Garcia DO 03/26/2024 3:30:24 PM This report has been signed electronically.
[2024-03-26] MEDS: Lactated Ringers 500 ML 999 ML IV (16:08)
[2024-03-26] MEDS: Morphine 4 MG/ML Syringe 6 MG IV (16:09)
--- NOTE | 2024-03-26 16:35 | POSTOPAN2_ITS ---
Anesthesia Postop Eval I Sum Postop Eval Completion status Anesthesia document: Postop Eval 1 completed: Yes Anesthesia Postop Eval I Summary Anesthesia Postop Eval I Summary: Anesthesia Postop Eval I: Assessment Summary Airway patent Yes 03/26/24 15:20 CONTROL [email or web address] Spontaneous unlabored Yes 03/26/24 15:20 CONTROL [email or web address] respirations Mental status nausea No 03/26/24 15:20 CONTROL [email or web address] Vomiting No 03/26/24 15:20 CONTROL [email or web address] Anesthesia Postop Eval I: Fluid Summary Crystalloid volume administer 20 03/26/24 15:20 CONTROL [email or web address] (ml) Colloids volume administered ( ml) Blood Product volume administered (ml) Total IV fluid infused 20 03/26/24 15:20 CONTROL [email or web address] Anesthesia Postop Eval I: Summary Notes Anesthesia Complication No 03/26/24 15:20 CONTROL [email or web address] Anesthesia Complication Comment: Post-operative progress note Anesthesia: Postop Eval II Evaluation Mental status: Awake Pain Level: 4 nausea: Yes Vomiting: Yes
--- NOTE | 2024-03-26 16:35 | PCM.POSTANE2 ---
Anesthesia Postop Eval I Sum Postop Eval Completion status Anesthesia document: Postop Eval 1 completed: Yes Anesthesia Postop Eval I Summary Anesthesia Postop Eval I Summary: Anesthesia Postop Eval I: Assessment Summary Airway patent Yes 03/26/24 15:20 WEIGHT COUNT [email or web address] Spontaneous unlabored Yes 03/26/24 15:20 WEIGHT COUNT OPERATOR.JDEF respirations Mental status nausea No 03/26/24 15:20 WEIGHT COUNT OPERATOR.JDEF Vomiting No 03/26/24 15:20 WEIGHT COUNT [email or web address].[email or web address] Anesthesia Postop Eval I: Fluid Summary Crystalloid volume administer 20 03/26/24 15:20 WEIGHT COUNT [email or web address] (ml) Colloids volume administered ( ml) Blood Product volume administered (ml) Total IV fluid infused 20 03/26/24 15:20 WEIGHT COUNT [email or web address].[email or web address] Anesthesia Postop Eval I: Summary Notes Anesthesia Complication No 03/26/24 15:20 WEIGHT COUNT [email or web address].JDEF Anesthesia Complication Comment: Post-operative progress note Anesthesia: Postop Eval II Evaluation Mental status: Awake Pain Level: 4 nausea: Yes Vomiting: Yes
--- NOTE | 2024-03-29 14:00 | PCM.HP.STD ---
[facility] - General General Date of Service: 03/29/24 Chief Complaint: Stent removal HPI Narrative FADY HAWLEY, is a 33 M-year-old patient was admitted from the emergency room with gallstone pancreatitis. Following day he was taken for ERCP. Stone was removed from the duct and the stents were placed. The following day he was taken for laparoscopic cholecystectomy which he tolerated well. Today he is tolerating a diet and he will be discharged home. He comes in for stent removal today. [facility] Medical History (Updated 04/01/24 @ 12:[address] Oden Friend, DO) Acute gallstone pancreatitis Alcohol use History of steroid therapy Fatty liver Back pain Non-smoker Gastroenteritis Impacted cerumen of both ears Anxiety Physical exam, pre-employment Home Medications ?Medication ?Instructions ?Recorded ?Last Taken ?Type dextroamphetamine-amphetamine 20 20 mg PO BID 02/06/24 Unknown History mg tablet (Adderall) trazodone 100 mg tablet 100 mg PO QHS 02/09/24 Unknown History Allergy/AdvReac Type Severity Reaction Status Date / Time No Known Allergies Allergy Verified 03/26/24 12:38 Surgical History History of laparoscopic cholecystectomy History of ERCP Hx of wisdom tooth extraction Social History Smoking Status: Never smoker alcohol intake: current substance use type: does not use ROS ROS Narrative Review of Systems: Constitutional: Patient denies fever or chills. Eyes: Patient denies changes in vision or discharge from eyes. ENT: Patient denies runny nose, sore throat or ear pain. CV: Patient denies chest pain, palpitations or heart racing. Resp: Patient denies SOB or cough. GI: Patient admits to abdominal pain and nausea with one episode of bilious emesis. He denies diarrhea or constipation. : Patient denies dysuria, hematuria or urinary hesitancy. MSK: Patient denies arthralgias and myalgias. Skin: Patient denies rash, abscess or jaundice. Psych: Patient denies symptoms of uncontrolled depression or anxiety. Neuro: Patient denies headache, paresthesias or focal neurologic deficits. Hematology: Patient denies easy bleeding or easy bruisability. Endocrinology: Patient denies polyuria, polydipsia or polyphagia. 14 point ROS otherwise negative except for positives noted above. Vital Signs Vital Signs Vital Signs: Weight Weight: 218 lb 7.649 oz Body Mass Index (BMI) 34.2 Physical Exam Const oriented x3 and no apparent distress GI normal to inspection, nondistended, normoactive bowel sounds Assessment & Plan Assessment/Plan (1) Acute gallstone pancreatitis: PLAN: 33-year-old with acute gallstone pancreatitis status post ERCP with stone removal and stent placement. He is also status post cholecystectomy. He is in for stent removal today. He was explained alternatives, risk, benefits include understanding bleeding, infection, sepsis, perforation, need for emergent surgery . He will have an ASA of 3.
== END 2024-03-26 16:48 | disposition home or self-care (01) ==
LOC: EN 12:23 → AC 12:26
PROVIDERS: PCP Family Medicine; Referring Provider Family Medicine; Visit Provider Internal Medicine Gastroenterology
PROC: (CPT 43260; principal; 2024-03-26 13:40)
DX: K80.51 Calculus of bile duct without cholangitis or cholecystitis with obstruction (principal); K85.10 Biliary acute pancreatitis without necrosis or infection; F41.9 Anxiety disorder, unspecified; Z90.49 Acquired absence of other specified parts of digestive tract; Z79.899 Other long term (current) drug therapy
CPT/HCPCS: 43275; 43264; 43262; 74330; 76000; 93005; J7120; A4216; J2405

== ENCOUNTER 2024-05-03 20:56 | Emergency (ER) | payer OTHER, SELFPAY ==
[2024-05-03 20:56] VITALS: BP 147/82; PULSE 75; RESP 16; TEMP 36; O2SAT 98; BMI 32.0
--- NOTE | 2024-05-03 21:30 | EX.ED.VISEXT ---
HPI <IRENE Espinosa - Last Filed: 05/03/24 21:35> History of Present Illness Chief Complaint: Bite Narrative Narrative: Patient presenting today with a bite to his right dorsal forearm from one of the kids at his work this evening. They had to restrain the kid because she was acting combative and she bit his forearm. His tetanus is up-to-date. He denies any other injury. ROS <IRENE Espinosa - Last Filed: 05/03/24 21:35> ROS ED Constitutional Constitutional ED: Denies chills or fever(s) Cardiovascular Cardiovascular: Denies chest pain Respiratory/Chest Respiratory/Chest: Denies dyspnea Gastrointestinal Gastrointestinal: Denies abdominal pain, nausea or vomiting Musculoskeletal Musculoskeletal: Reports other Details: Bite to right forearm Integumentary Reports other Details: Bite to right forearm Neurologic Neurologic: Denies paresthesias PFS <IRENE Espinosa - Last Filed: 05/03/24 21:35> PFSH Medical History Acute gallstone pancreatitis Alcohol use History of steroid therapy Fatty liver Back pain Non-smoker Gastroenteritis Impacted cerumen of both ears Anxiety Physical exam, pre-employment Home Medications ?Medication ?Instructions ?Recorded ?Last Taken ?Type dextroamphetamine-amphetamine 20 20 mg PO BID 02/06/24 Unknown History mg tablet (Adderall) trazodone 100 mg tablet 100 mg PO QHS 02/09/24 Unknown History amoxicillin 875 mg-potassium 1 tab PO BID #9 tabs 05/03/24 Unknown Rx clavulanate 125 mg tablet Allergy/AdvReac Type Severity Reaction Status Date / Time No Known Allergies Allergy Verified 05/03/24 20:56 Surgical History History of laparoscopic cholecystectomy History of ERCP Hx of wisdom tooth extraction Social History Smoking Status: Never smoker alcohol intake: current substance use type: does not use EXAM <IRENE Espinosa - Last Filed: 05/03/24 21:35> Physical Exam Const Vital Signs: 05/03/24 20:56 Temperature 96.8 F L Temperature Source Temporal Pulse Rate 75 Respiratory Rate 16 Blood Pressure 147/82 H Blood Pressure Mean 103 Pulse Ox 98 Oxygen Delivery Method Room Air Positive well nourished, well developed and no apparent distress General Appearance ED: well developed HEENT Reports normocephalic and head/scalp atraumatic Mouth ED: Yes moist mucous membranes normal Eyes PERRL and EOMs intact bilaterally Neck full ROM and supple Chest Wall inspection of chest normal Resp normal respiratory effort and clear to auscultation bilaterally Cardio regular rate and regular rhythm Back/Spine normal ROM and normal to inspection Extremity normal to inspection and full ROM Extremity Narrative: Bite to the right forearm that does break the skin, this appears superficial, neurovascularly intact. No discharge from the wound. Neuro oriented x3, CN's II-XII intact bilaterally, moves all extremities, no focal motor deficits and no sensory deficits noted Sensorium / Orientation: awake and alert Psych mental status grossly normal and thought process normal <Dr. Kvng Henry MD - Last Filed: 05/03/24 21:47> Physical Exam Const Vital Signs: 05/03/24 20:56 Temperature 96.8 F L Temperature Source Temporal Pulse Rate 75 Respiratory Rate 16 Blood Pressure 147/82 H Blood Pressure Mean 103 Pulse Ox 98 Oxygen Delivery Method Room Air MDM <IRENE Espinosa - Last Filed: 05/03/24 21:35> [facility] Narrative Medical decision making narrative: Patient presenting today with a bite to the dorsal right forearm from a child at work this evening. This does break the skin, he will be treated with Augmentin with first dose here. His tetanus is up-to-date. The wound was cleansed and bandaged with bacitracin ointment. Return instructions were discussed. Wound care instructions were discussed. Patient discharged home in stable condition. <Dr. Kvng Henry MD - Last Filed: 05/03/24 21:47> [facility] Treatment and Re-Evaluation Narrative: I have personally performed a face to face assessment of the patient and have reviewed the [place] Note. I performed a substantive portion of the visit including all aspects of the following. My little findings include: History is work-related injury where there was a child at the [facility] where he works that bit him in the right forearm and would not let go, sustaining an open wound. He denies any symptoms other than pain at the site of the right forearm. Exam is mildly open superficial wound, does not need repair, mid dorsal right forearm with a small hematoma. No active bleeding. No signs of infection. neurovascularly intact distally. Full range of motion all joints. Medical decision making: Cleanse thoroughly, prophylactic Augmentin, follow-up. Should not require any work restrictions for this except for keeping a dressing on the area. Other additions or changes: [None] Discharge Plan Triage Chief Complaint: Bite ED Midlevel Provider: Jia Rahman ED Provider: Kvng Henry Dx/Rx/DC Orders Clinical Impression: Human bite of right forearm Instructions: ED Human Bite Prescriptions: New amoxicillin-pot clavulanate 875-125 mg tablet 1 tab PO BID Qty: 9 0RF No Action dextroamphetamine-amphetamine [Adderall] 20 mg tablet 20 mg PO BID trazodone 100 mg tablet 100 mg PO QHS Primary Care Provider: Wilberto Watts Referrals: Wilberto Watts MD [Primary Care Provider] - 3-5 Days Activity Restrictions/Additional Instructions: Follow-up with your PCP and return for any signs of infection. Print Language: Georgian Disposition Disposition: Home, Self Care
[2024-05-03] MEDS: Amox/Clavulanate 875 MG Tablet PO (21:32)
[2024-05-03 21:46] VITALS: BP 121/69; PULSE 72; RESP 18; TEMP -7.7; TEMP 18; O2SAT 97
== END 2024-05-03 21:47 | disposition home or self-care (01) ==
PROVIDERS: Emergency Provider Emergency Medicine; PCP Family Medicine; Visit Provider Emergency Medicine
DX: S51.851A Open bite of right forearm, initial encounter (principal); W50.3XXA Accidental bite by another person, initial encounter; Y99.0 Civilian activity done for income or pay; Y92.89 Other specified places as the place of occurrence of the external cause
CPT/HCPCS: 99282

== ENCOUNTER 2024-08-13 13:20 | Emergency (ER) | payer OTHER, SELFPAY ==
[2024-08-13 13:21] VITALS: BP 138/89; PULSE 110; RESP 16; TEMP 37.2; O2SAT 94; BMI 32.8
--- NOTE | 2024-08-13 14:06 | ED.VIS.GI ---
HPI HPI - GI History of Present Illness Chief Complaint: Nausea/Vomiting/Diarrhea Informant: patient Abdominal Pain/Flank Pain Onset: Today Context: Sudden Onset Timing: Continuous Quality: Aching Location: Diffuse Worsened by: Food Relieved by: Nothing Nausea/Vomiting/Emesis GI Symptom: Positive for Nausea and Vomiting Onset: Today Quality: Positive for Nonbilious; Negative for Blood streaks, Coffee ground or Hematemesis Diarrhea/Melena/Hematochezia GI Symptom: Positive for Diarrhea; Negative for Melena or Hematochezia Onset: Today Stool Quality: Positive for Watery Associated Symptoms Associated Symptoms: Negative for Dysuria, Frequency or Hematuria Narrative Narrative: Patient presents with abdominal pain, nausea, vomiting, and diarrhea that began early this morning. Patient states it began rather suddenly. Patient states that has been constant. Patient describes his pain as aching. Patient states it is diffuse across his abdomen. Patient states that his nausea and vomiting gets worse anytime he tries to eat or drink anything. Patient denies any hematemesis or coffee-ground emesis. Patient states his diarrhea is watery. Patient denies any melena or hematochezia. Patient denies any dysuria, frequency, or hematuria. Patient denies any fevers or chills. [facility] Medical History Bite wound of right forearm Acute gallstone pancreatitis Alcohol use History of steroid therapy Fatty liver Back pain Non-smoker Gastroenteritis Impacted cerumen of both ears Anxiety Physical exam, pre-employment Home Medications ?Medication ?Instructions ?Recorded ?Last Taken ?Type dextroamphetamine-amphetamine 20 20 mg PO BID 02/06/24 Unknown History mg tablet (Adderall) trazodone 100 mg tablet 100 mg PO QHS 02/09/24 Unknown History amoxicillin 875 mg-potassium 1 tab PO BID #9 tabs 05/03/24 Unknown Rx clavulanate 125 mg tablet ondansetron 4 mg disintegrating 4 mg PO Q8H PRN PRN Nausea #10 tabs 08/13/24 Unknown Rx tablet Allergy/AdvReac Type Severity Reaction Status Date / Time No Known Allergies Allergy Verified 08/13/24 13:21 Surgical History History of laparoscopic cholecystectomy History of ERCP Hx of wisdom tooth extraction Social History Smoking Status: Never smoker alcohol intake: current substance use type: does not use ROS ROS ED Constitutional Constitutional ED: Denies chills or fever(s) Eyes Eyes: Denies blurry vision or change in vision ENT ENT ED: Denies rhinorrhea or sore throat Cardiovascular Cardiovascular: Denies chest pain or palpitations Respiratory/Chest Respiratory/Chest: Denies cough or dyspnea Gastrointestinal Gastrointestinal: Reports abdominal pain, diarrhea, nausea and vomiting; Denies melena Genitourinary Genitourinary ED: Denies dysuria or hematuria Musculoskeletal Musculoskeletal: Denies back pain or neck pain Integumentary Denies abscess or rash Neurologic Neurologic: Denies headache(s) or weakness Allergic/Immunologic Allergic/Immunologic ED: Denies mouth swelling or urticaria EXAM Physical Exam Const Vital Signs: 08/13/24 13:21 08/13/24 13:56 08/13/24 15:20 Temperature 99.0 F Temperature Source Oral Pulse Rate 110 H 78 Respiratory Rate 16 16 Respiratory Effort Normal Respiratory Pattern Normal Blood Pressure 138/89 H 124/76 H Blood Pressure Mean 105 92 Pulse Ox 94 98 Oxygen Delivery Method Room Air Room Air Positive well nourished and well developed General Appearance ED: well developed and NAD HEENT Reports moist mucous membranes normocephalic and atraumatic Neck supple and no JVD Resp normal respiratory effort and clear to auscultation bilaterally Cardio regular rhythm Rate: tachycardic GI Palpation: soft and tender epigastric, LLQ, RLQ, LUQ, RUQ, periumbilical and suprapubic; Negative for guarding or rebound tenderness present Neuro CN's II-XII intact bilaterally, moves all extremities and no sensory deficits noted Sensorium / Orientation: alert Motor Exam: strength 5/5 throughout Psych mental status grossly normal and thought process normal MDM MDM MDM Narrative Medical decision making narrative: Differential diagnosis includes gastroenteritis, viral illness, dehydration, acute kidney injury, electrolyte abnormality, and pancreatitis. CBC will be obtained to assess for leukocytosis and anemia. Comprehensive metabolic profile will be obtained to assess for hepatic function, renal function, and electrolyte abnormality. Lipase will be obtained to assess for pancreatitis. Lab Data Attestation: I reviewed the patient's lab results. Lab results narrative: CBC was reviewed. There is a slight leukocytosis of 11.3. The remainder was within normal limits. Comprehensive metabolic profile was reviewed. BUN was slightly elevated at 21. The remainder was within normal limits. Lipase was reviewed and was normal at 18. Labs: Laboratory Results - last 24 hr 08/13/24 14:07 WBC 11.3 H RBC 5.68 Hgb 17.0 H Hct 49.8 MCV 87.7 MCH 29.9 MCHC 34.1 RDW Std Deviation 41.2 RDW Coeff of Yoly 12.9 Plt Count 293 MPV 9.1 Immature Gran % (Auto) 0.400 Neut % (Auto) 95.2 H Lymph % (Auto) 1.5 L Garland % (Auto) 2.8 Eos % (Auto) 0.0 Baso % (Auto) 0.1 Absolute Neuts (auto) 10.7 H Absolute Lymphs (auto) 0.17 L Nucleated RBC % 0 Sodium 136 Potassium 3.9 Chloride Direct 102 Carbon Dioxide 19.3 L Anion Gap 15 BUN 21 H Creatinine 0.99 Estim Creat Clear Calc 133.14 Est GFR (MDRD) Non-Af 104 BUN/Creatinine Ratio 21.3 H Glucose 121 H Calcium 9.3 Total Bilirubin 0.81 AST 31 ALT 32 Alkaline Phosphatase 103 Total Protein 8.3 Albumin 4.6 Globulin 3.7 Albumin/Globulin Ratio 1.2 Lipase 18 Treatment and Re-Evaluation :: Patient was given IV fluids and Zofran. Patient was feeling better on reevaluation. Patient was advised of his findings. Patient was given a prescription for Zofran. Patient was instructed to start with a liquid diet and advance as tolerated. Patient was instructed to follow-up with his primary care physician in 5 to 7 days. Patient was instructed to return if worse in any way. Patient understood and was agreeable with the plan. All questions were answered. Discharge Plan Triage Chief Complaint: Nausea/Vomiting/Diarrhea Other Complaint: Weakness ED Provider: Hasmukh Estes Dx/Rx/DC Orders Clinical Impression: Nausea vomiting and diarrhea, Dehydration Instructions: ED Gastroenteritis, Viral (Adult), ED Vomiting (Adult) Prescriptions: New ondansetron 4 mg tablet,disintegrating 4 mg PO Q8H PRN PRN (Reason: Nausea) Qty: 10 0RF No Action dextroamphetamine-amphetamine [Adderall] 20 mg tablet 20 mg PO BID trazodone 100 mg tablet 100 mg PO QHS amoxicillin-pot clavulanate 875-125 mg tablet 1 tab PO BID Qty: 9 0RF Primary Care Provider: Wilberto Watts Referrals: Wilberto Watts MD [Primary Care Provider] - 5-7 Days Print Language: Malaysian Disposition Disposition: Home, Self Care
[2024-08-13 14:38] LABS: Absolute Lymphocyte Count 0.17 X10^3/uL (0.83-4.51); Absolute Neutrophil Count 10.7 X10^3/uL (2.0-7.7); Basophil# 0.01 X10^3/uL; Basophil% 0.1 % (0-1); Hematocrit 49.8 % (40-54); Lymphocyte # 0.17 X10^3/ul (0.83-4.51); Lymphocyte % 1.5 % (19-41); Mean Corp Hgb Conc 34.1 g/dL (32-36); Mean Corpuscular Hgb 29.9 pg (27.0-32.0); Mean Corpuscular Volume 87.7 fL (80-94); Mean Platelet Vol. 9.1 fl (6.2-12.0); Monocyte# 0.32 X10^3/uL; Monocyte% 2.8 % (0-10); NRBC Flagged by Analyzer 0 % (0-5); Neutrophil # 10.71 X10^3/uL (2.7-7.7); Neutrophil % 95.2 % (47-70); POSITIVE DIFFERENTIAL YES; Platelet Count 293 K/mm3 (150-450); RBC Distribution Width CV 12.9 % (11.6-14.6); RBC Distribution Width SD 41.2 fl (35.1-43.9); Red Blood Count 5.68 M/mm3 (4.6-6.2); White Blood Count 11.3 K/mm3 (4.4-11.0)
[2024-08-13] MEDS: Ondansetron 4 MG/2 ML Vial IV (14:46)
[2024-08-13] MEDS: 0.9% Normal Saline (1000mL) 1,000 ML 999 ML IV (14:46)
[2024-08-13 15:00] LABS: ALB/GLOB Ratio 1.2 RATIO (0.9-2.4); AST(SGOT) 31 U/L (<=37); Alanine Aminotransfer ALT/SGPT 32 U/L (<=46); Albumin, Serum 4.6 g/dL (3.5-5.0); Alkaline Phosphatase 103 U/L (40-129); Anion Gap 15 (5-15); BUN 21 mg/dL (4-19); BUN/Creat Ratio 21.3 RATIO (10-20); Calcium 9.3 mg/dL (7.6-11.0); Carbon Dioxide 19.3 mmol/L (22.0-29.0); Chloride 102 mmol/L (96-108); Creatinine, Serum 0.99 mg/dL (0.70-1.20); EST Glomerular Filtration Rate 104 (>60); Estimated Creatinine Clearance 133.14 ml/min; Globulin 3.7 g/dL (2.2-4.2); Glucose 121 mg/dL (70-99); Lipase 18 U/L (13-75); Potassium 3.9 mmol/L (3.3-5.1); Protein, Total 8.3 g/dL (5.9-8.4); Sodium Level 136 mmol/L (133-145); Total Bilirubin 0.81 mg/dL (0.00-1.30)
[2024-08-13 15:20] VITALS: BP 124/76; PULSE 78; RESP 16; O2SAT 98
[2024-08-13 16:34] VITALS: BP 122/76; PULSE 64; RESP 18; TEMP 36.6; O2SAT 99
== END 2024-08-13 16:38 | disposition home or self-care (01) ==
PROVIDERS: Emergency Provider Emergency Medicine; PCP Family Medicine; Visit Provider Emergency Medicine
DX: R11.2 Nausea with vomiting, unspecified (principal); R19.7 Diarrhea, unspecified; E86.0 Dehydration
CPT/HCPCS: 80053; 83690; 85025; 96361; 96374; 99284; A4216; J2405

== ENCOUNTER → 2025-06-03 | Outpatient (CLI) | payer OTHER, SELFPAY ==
[2025-06-03 12:35] LABS: Hematocrit 46.3 % (40-54); Hemoglobin 15.7 g/dL (13.0-16.5); Immature Granulocytes Count 0.020 X10^3/uL (0.0-0.0); Mean Corp Hgb Conc 33.9 g/dL (32-36); Mean Corpuscular Volume 87.0 fL (80-94); Mean Platelet Vol. 9.1 fl (6.2-12.0); NRBC Flagged by Analyzer 0 % (0-5); Platelet Count 318 K/mm3 (150-450); RBC Distribution Width CV 12.7 % (11.6-14.6); RBC Distribution Width SD 40.0 fl (35.1-43.9); Red Blood Count 5.32 M/mm3 (4.6-6.2); White Blood Count 8.3 K/mm3 (4.4-11.0)
[2025-06-03 13:21] LABS: AST(SGOT) 28 U/L (<=37); Alanine Aminotransfer ALT/SGPT 28 U/L (<=46); Albumin, Serum 4.6 g/dL (3.5-5.0); Alkaline Phosphatase 101 U/L (40-129); Anion Gap 12 (5-15); BUN 12 mg/dL (4-19); BUN/Creat Ratio 11.3 RATIO (10-20); Calcium,Total 9.7 mg/dL (7.6-11.0); Carbon Dioxide 23.1 mmol/L (21.0-32.0); Chloride 102 mmol/L (98-108); Globulin 3.6 g/dL (2.2-4.2); Glucose 99 mg/dL (70-99); Lipase 21 U/L (13-75); Potassium 4.1 mmol/L (3.3-5.1)
== END | disposition home or self-care (01) ==
PROVIDERS: PCP Family Medicine; Visit Provider Family Medicine
DX: R19.4 Change in bowel habit (principal)
CPT/HCPCS: 36415; 80053; 83690; 84443; 85025; 85652